=== PATIENT | male | born 1960 | race Caucasian/White ===

== ENCOUNTER 2020-01-15 20:40 | Inpatient (IN) ==
[2020-01-15] MEDS ORDERED: Isovue-370 500 ML BOTTLE IVP ONE (23:19)
[2020-01-15] MEDS ORDERED: Ondansetron ODT 4 MG TAB.RAPDIS SL PRN (23:37)
[2020-01-15] MEDS ORDERED: Nicotine 2 MG GUM BC PRN (23:37)
[2020-01-15] MEDS ORDERED: Naloxone 0.4 MG/ML INJ IVP PRN (23:37)
[2020-01-15] MEDS ORDERED: Albuterol 2.5 MG/3 ML NEBULIZER IH PRN (23:37)
[2020-01-15] MEDS ORDERED: *HR* LORazepam 2 MG/ML VIAL IVP PRN ×3 (23:37)
[2020-01-15] MEDS ORDERED: 0.9 % Sodium Chloride 1,000 ML IVC SCH (23:45)
[2020-01-15] MEDS ORDERED: Thiamine (B-1) 100 MG, Folic Acid 1 MG, MVI, adult with vitamin K 10 ML in 0.9 % Sodi... IVPB SCH (23:45)
[2020-01-16 00:20] LABS: Bilirubin,Urine Negative (Negative); Blood,Urine Trace (Negative); Clarity,Urine Clear (Clear); Color,Urine Yellow (Yellow); Glucose,Urine (UA) Normal (Normal); Ketones,Urine Negative (Negative); Leukocyte Esterase,Urine Negative (Negative); Nitrite,Urine Negative (Negative); Protein,Urine Negative (Neg-Trace); Specific Gravity,Urine 1.029 (1.010-1.025); Urobilinogen,Urine Normal (Normal)
[2020-01-16 00:22] LABS: Bacteria,Urine None Seen per hpf (None-Few); Hyaline Casts,Urine None Seen per lpf (None-Few); Squamous Epithelial Cell,Urine Moderate per lpf (None-Few); WBC,Urine 0-3 per hpf (0-3)
[2020-01-16 00:24] LABS: Basophils # 0.1 K/mcL (0.0-0.2); Basophils % 0.6 %; Eosinophils # 0.8 K/mcL (0.0-0.6); Eosinophils % 3.8 %; Hematocrit 37.7 % (37.5-50.1); Hemoglobin 12.1 g/dL (12.9-16.9); Immature Granulocytes % 2.2 % (0-4); Lymphocytes # 2.1 K/mcL (0.6-4.6); Lymphocytes % 10.3 %; Mean Corpuscular HGB Conc 32.1 g/dL (31.6-35.5); Mean Corpuscular Hemoglobin 28.3 pg (28.0-33.3); Mean Corpuscular Volume 88.1 fL (83.0-100.0); Mean Platelet Volume 9.6 fL (9.4-12.4); Monocytes # 1.9 K/mcL (0.0-1.3); Monocytes % 9.4 %; Neutrophils # 15.1 K/mcL (1.6-8.9); Platelet Count 553 K/mcL (140-400); Red Blood Count 4.28 M/mcL (4.19-5.50); Red Cell Distribution Width 13.9 % (11.5-14.5); Segmented Neutrophils % 73.7 %; White Blood Count 20.4 K/mcL (4.3-11.1)
[2020-01-16 00:32] LABS: Amphetamine Screen,Urine Positive ng/mL (Cutoff=1000); Barbiturate Screen,Urine Negative ng/mL (Cutoff=200); Benzodiazepines Screen,Urine Negative ng/mL (Cutoff=200); Cannabinoid Screen,Urine Negative ng/mL (Cutoff = 50); Cocaine Screen,Urine Negative ng/mL (Cutoff= 300); Opiate Screen,Urine Negative ng/mL (Cutoff=300); Phencyclidine Screen,Urine Negative ng/mL (Cutoff=25)
[2020-01-16 00:37] LABS: Magnesium 1.9 mg/dL (1.6-2.6); Phosphorous 3.2 mg/dL (2.7-4.5)
[2020-01-16 00:41] LABS: Alanine Aminotransferase 30 Units/L (7-52); Albumin 2.7 g/dL (3.5-5.7); Albumin/Globulin Ratio 0.8 (1.1-2.2); Alkaline Phosphatase 122 Units/L (34-104); Aspartate Amino Transferase 36 Units/L (13-39); BUN/Creatinine Ratio 12 (6-26); Bilirubin,Total 0.4 mg/dL (0.3-1.0); Blood Urea Nitrogen 8 mg/dL (6-20); Calcium 8.1 mg/dL (8.6-10.3); Carbon Dioxide 27 mEq/L (23-29); Chloride 92 mEq/L (98-107); Globulin 3.6 g/dL (2.4-3.5); Glucose 105 mg/dL (70-105); Osmolality,Calculated 261 (280-300); Potassium 3.7 mEq/L (3.5-5.1); Sodium 126 mEq/L (136-145); Total Protein 6.3 g/dL (6.4-8.9); eGFR For African Americans > 60 (> 60); eGFR For Non-African Americans > 60 (> 60)
[2020-01-16 00:44] LABS: Troponin I 0.78 ng/mL (< 0.04)
[2020-01-16] MEDS ORDERED: Ringers Solution, Lactated 1,000 ML IVC SCH (01:00)
[2020-01-16 02:28] LABS: Basophils # 0.1 K/mcL (0.0-0.2); Basophils % 0.4 %; Eosinophils # 0.7 K/mcL (0.0-0.6); Eosinophils % 3.4 %; Hematocrit 34.7 % (37.5-50.1); Hemoglobin 11.3 g/dL (12.9-16.9); Immature Granulocytes % 2.3 % (0-4); Lymphocytes # 1.6 K/mcL (0.6-4.6); Lymphocytes % 7.8 %; Mean Corpuscular HGB Conc 32.6 g/dL (31.6-35.5); Mean Corpuscular Hemoglobin 28.6 pg (28.0-33.3); Mean Corpuscular Volume 87.8 fL (83.0-100.0); Mean Platelet Volume 9.3 fL (9.4-12.4); Monocytes # 1.7 K/mcL (0.0-1.3); Monocytes % 8.5 %; Neutrophils # 15.8 K/mcL (1.6-8.9); Platelet Count 538 K/mcL (140-400); Red Blood Count 3.95 M/mcL (4.19-5.50); Red Cell Distribution Width 13.7 % (11.5-14.5); Segmented Neutrophils % 77.6 %; White Blood Count 20.4 K/mcL (4.3-11.1)
[2020-01-16 02:44] LABS: BUN/Creatinine Ratio 14 (6-26); Blood Urea Nitrogen 8 mg/dL (6-20); Carbon Dioxide 26 mEq/L (23-29); Chloride 93 mEq/L (98-107); Chol/HDL Ratio 5.1 (0-4.9); Glucose 105 mg/dL (70-105); Osmolality,Calculated 261 (280-300); Potassium 3.5 mEq/L (3.5-5.1); Sodium 126 mEq/L (136-145); eGFR For African Americans > 60 (> 60); eGFR For Non-African Americans > 60 (> 60)
[2020-01-16] MEDS ORDERED: Piperacillin/Tazobactam 3.375 GM in 0.9 % Sodium Chloride Mini Bag 100 ML IVPB SCH (04:46)
[2020-01-16] MEDS ORDERED: Cefepime HCl 2,000 MG in 0.9 % Sodium Chloride Mini Bag 100 ML IVPB SCH (06:00)
[2020-01-16 06:17] LABS: BUN/Creatinine Ratio 12 (6-26); Blood Urea Nitrogen 7 mg/dL (6-20); Carbon Dioxide 28 mEq/L (23-29); Chloride 94 mEq/L (98-107); Glucose 101 mg/dL (70-105); Osmolality,Calculated 264 (280-300); Potassium 3.6 mEq/L (3.5-5.1); Sodium 128 mEq/L (136-145); eGFR For African Americans > 60 (> 60); eGFR For Non-African Americans > 60 (> 60)
[2020-01-16] MEDS: Heparin 25,000 UNIT/250 ML D5W 25,000 UNIT/250 ML IV.SOLN IVC SCH (06:20)
[2020-01-16] MEDS: MetroNIDAZOLE 500 MG/100 ML 500 MG/100 ML BAG IVPB SCH ×2 (06:20→17:06)
[2020-01-16 07:58] LABS: Estimated Average Glucose 128 mg/dl
[2020-01-16] MEDS: Thiamine (B-1) 100 MG TABLET PO SCH (08:27)
[2020-01-16] MEDS: Vitamin B Complex/Vit C/Vit E 1 EACH TABLET PO SCH (08:27)
[2020-01-16] MEDS: Folic Acid 1 MG TABLET PO SCH (08:27)
[2020-01-16] MEDS ORDERED: *HR* Labetalol 20 MG/4 ML SYRINGE IVP ONE (08:46)
[2020-01-16 11:32] LABS: BUN/Creatinine Ratio 11 (6-26); Blood Urea Nitrogen 7 mg/dL (6-20); Carbon Dioxide 27 mEq/L (23-29); Chloride 96 mEq/L (98-107); Glucose 94 mg/dL (70-105); Osmolality,Calculated 264 (280-300); Potassium 3.6 mEq/L (3.5-5.1); Sodium 128 mEq/L (136-145); eGFR For African Americans > 60 (> 60); eGFR For Non-African Americans > 60 (> 60)
[2020-01-16] MEDS: *HR* Heparin 5,000 UNIT/ML VIAL IVP PRN ×2 (13:51→20:47)
[2020-01-16] MEDS: 0.9 % Sodium Chloride 1,000 ML IVC SCH (13:53)
[2020-01-16 14:54] LABS: BUN/Creatinine Ratio 15 (6-26); Blood Urea Nitrogen 9 mg/dL (6-20); Carbon Dioxide 29 mEq/L (23-29); Chloride 96 mEq/L (98-107); Glucose 87 mg/dL (70-105); Osmolality,Calculated 266 (280-300); Potassium 3.6 mEq/L (3.5-5.1); Sodium 129 mEq/L (136-145); eGFR For African Americans > 60 (> 60); eGFR For Non-African Americans > 60 (> 60)
[2020-01-16] MEDS: Cefepime HCl 2,000 MG in Water for inj. (sterile) 20 ML IVP SCH (16:30)
[2020-01-17] MEDS: 0.9 % Sodium Chloride 1,000 ML IVC SCH (00:05)
[2020-01-17] MEDS: Cefepime HCl 2,000 MG in Water for inj. (sterile) 20 ML IVP SCH ×3 (00:06→15:40)
[2020-01-17] MEDS: MetroNIDAZOLE 500 MG/100 ML 500 MG/100 ML BAG IVPB SCH ×3 (00:07→15:40)
[2020-01-17 03:12] LABS: Hematocrit 30.4 % (37.5-50.1); Mean Corpuscular HGB Conc 32.9 g/dL (31.6-35.5); Mean Corpuscular Hemoglobin 28.8 pg (28.0-33.3); Mean Corpuscular Volume 87.6 fL (83.0-100.0); Mean Platelet Volume 9.6 fL (9.4-12.4); Platelet Count 529 K/mcL (140-400); Red Blood Count 3.47 M/mcL (4.19-5.50); Red Cell Distribution Width 14.3 % (11.5-14.5); White Blood Count 20.3 K/mcL (4.3-11.1)
[2020-01-17 03:20] LABS: % Iron Saturation 26 % (20-55); Alanine Aminotransferase 22 Units/L (7-52); Albumin 2.3 g/dL (3.5-5.7); Albumin/Globulin Ratio 0.7 (1.1-2.2); Alkaline Phosphatase 100 Units/L (34-104); Aspartate Amino Transferase 27 Units/L (13-39); BUN/Creatinine Ratio 16 (6-26); Bilirubin,Total 0.4 mg/dL (0.3-1.0); Blood Urea Nitrogen 10 mg/dL (6-20); Calcium 7.7 mg/dL (8.6-10.3); Carbon Dioxide 24 mEq/L (23-29); Chloride 98 mEq/L (98-107); Globulin 3.2 g/dL (2.4-3.5); Glucose 101 mg/dL (70-105); Iron 40 mcg/dL (65-175); Osmolality,Calculated 267 (280-300); Potassium 3.6 mEq/L (3.5-5.1); Sodium 129 mEq/L (136-145); Total Protein 5.5 g/dL (6.4-8.9); Transferrin 109 mg/dL (203-362); eGFR For African Americans > 60 (> 60); eGFR For Non-African Americans > 60 (> 60)
[2020-01-17 03:24] LABS: Troponin I 0.35 ng/mL (< 0.04)
[2020-01-17] MEDS: *HR* Heparin 5,000 UNIT/ML VIAL IVP PRN ×2 (04:39→11:03)
[2020-01-17] MEDS: Vitamin B Complex/Vit C/Vit E 1 EACH TABLET PO SCH (07:57)
[2020-01-17] MEDS: Folic Acid 1 MG TABLET PO SCH (07:57)
[2020-01-17] MEDS: Thiamine (B-1) 100 MG TABLET PO SCH (07:57)
[2020-01-17] MEDS: Heparin 25,000 UNIT/250 ML D5W 25,000 UNIT/250 ML IV.SOLN IVC SCH (08:13)
[2020-01-17] MEDS ORDERED: Lactulose Oral Soln 20 GM/30 ML UDC PO ONE (11:08)
[2020-01-17] MEDS ORDERED: 0.9 % Sodium Chloride 1,000 ML IVC SCH (11:30)
[2020-01-17] MEDS: Iron Sucrose Complex 200 MG in 0.9 % Sodium Chloride 100 ML IVPB SCH (12:52)
[2020-01-17] MEDS: Menthol 9.1 MG LOZENGE PO PRN (20:54)
[2020-01-18] MEDS: MetroNIDAZOLE 500 MG/100 ML 500 MG/100 ML BAG IVPB SCH ×4 (00:25→23:28)
[2020-01-18] MEDS: Cefepime HCl 2,000 MG in Water for inj. (sterile) 20 ML IVP SCH ×4 (00:25→23:27)
[2020-01-18 04:43] LABS: Hematocrit 29.2 % (37.5-50.1); Hemoglobin 9.7 g/dL (12.9-16.9); Mean Corpuscular HGB Conc 33.2 g/dL (31.6-35.5); Mean Corpuscular Hemoglobin 28.8 pg (28.0-33.3); Mean Corpuscular Volume 86.6 fL (83.0-100.0); Mean Platelet Volume 9.5 fL (9.4-12.4); Platelet Count 492 K/mcL (140-400); Red Blood Count 3.37 M/mcL (4.19-5.50); Red Cell Distribution Width 14.3 % (11.5-14.5); White Blood Count 20.4 K/mcL (4.3-11.1)
[2020-01-18] MEDS: Heparin 25,000 UNIT/250 ML D5W 25,000 UNIT/250 ML IV.SOLN IVC SCH ×2 (04:43→20:44)
[2020-01-18 05:00] LABS: BUN/Creatinine Ratio 15 (6-26); Blood Urea Nitrogen 9 mg/dL (6-20); Calcium 7.6 mg/dL (8.6-10.3); Carbon Dioxide 26 mEq/L (23-29); Chloride 98 mEq/L (98-107); Glucose 113 mg/dL (70-105); Osmolality,Calculated 269 (280-300); Potassium 3.3 mEq/L (3.5-5.1); Sodium 130 mEq/L (136-145); eGFR For African Americans > 60 (> 60); eGFR For Non-African Americans > 60 (> 60)
[2020-01-18] MEDS: Iron Sucrose Complex 200 MG in 0.9 % Sodium Chloride 100 ML IVPB SCH (09:02)
[2020-01-18] MEDS ORDERED: 0.9 % Sodium Chloride 1,000 ML IVC SCH (12:30)
[2020-01-18] MEDS: Folic Acid 1 MG TABLET PO SCH (13:31)
[2020-01-18] MEDS: Vitamin B Complex/Vit C/Vit E 1 EACH TABLET PO SCH (13:31)
[2020-01-18] MEDS: Thiamine (B-1) 100 MG TABLET PO SCH (13:31)
[2020-01-19] MEDS: Menthol 9.1 MG LOZENGE PO PRN ×2 (00:18→06:14)
[2020-01-19 04:41] LABS: Hematocrit 29.3 % (37.5-50.1); Hemoglobin 9.7 g/dL (12.9-16.9); Mean Corpuscular HGB Conc 33.1 g/dL (31.6-35.5); Mean Corpuscular Volume 87.5 fL (83.0-100.0); Mean Platelet Volume 10.1 fL (9.4-12.4); Platelet Count 472 K/mcL (140-400); Red Blood Count 3.35 M/mcL (4.19-5.50); Red Cell Distribution Width 14.4 % (11.5-14.5)
[2020-01-19 05:01] LABS: BUN/Creatinine Ratio 10 (6-26); Blood Urea Nitrogen 7 mg/dL (6-20); Calcium 7.7 mg/dL (8.6-10.3); Carbon Dioxide 25 mEq/L (23-29); Chloride 99 mEq/L (98-107); Glucose 130 mg/dL (70-105); Osmolality,Calculated 270 (280-300); Potassium 3.5 mEq/L (3.5-5.1); Sodium 130 mEq/L (136-145); eGFR For African Americans > 60 (> 60); eGFR For Non-African Americans > 60 (> 60)
[2020-01-19] MEDS: Cefepime HCl 2,000 MG in Water for inj. (sterile) 20 ML IVP SCH ×3 (09:37→23:33)
[2020-01-19] MEDS: Iron Sucrose Complex 200 MG in 0.9 % Sodium Chloride 100 ML IVPB SCH (09:38)
[2020-01-19] MEDS: MetroNIDAZOLE 500 MG/100 ML 500 MG/100 ML BAG IVPB SCH ×3 (09:38→23:33)
[2020-01-19] MEDS: Thiamine (B-1) 100 MG TABLET PO SCH (09:39)
[2020-01-19] MEDS: Vitamin B Complex/Vit C/Vit E 1 EACH TABLET PO SCH (09:39)
[2020-01-19] MEDS: Folic Acid 1 MG TABLET PO SCH (09:39)
[2020-01-19] MEDS: Ipratropium/Albuterol Neb 3 ML IH SCH ×3 (10:38→22:08)
[2020-01-19 12:18] LABS: Red Blood Cell,CSF < 2000 RBC/mcL
[2020-01-19 12:27] LABS: Appearance,CSF Clear (Clear)
[2020-01-19 12:38] LABS: Glucose,CSF 67 mg/dL (40-70); Total Protein,CSF 38 mg/dL (15-45)
[2020-01-19] MEDS ORDERED: Aminoglycoside Consult 1 EACH MC ONE (19:41)
[2020-01-20 00:28] LABS: Bilirubin,Urine Negative (Negative); Blood,Urine Trace (Negative); Clarity,Urine Clear (Clear); Color,Urine Yellow (Yellow); Glucose,Urine (UA) Normal (Normal); Ketones,Urine Negative (Negative); Leukocyte Esterase,Urine Negative (Negative); Nitrite,Urine Negative (Negative); Protein,Urine Negative (Neg-Trace); Specific Gravity,Urine 1.009 (1.010-1.025); Urobilinogen,Urine Normal (Normal)
[2020-01-20 00:29] LABS: Sodium, Urine 48.4 mEq/L
[2020-01-20 00:30] LABS: Bacteria,Urine None Seen per hpf (None-Few); Hyaline Casts,Urine None Seen per lpf (None-Few); RBC,Urine 0-3 per hpf (0-3); Squamous Epithelial Cell,Urine Moderate per lpf (None-Few); WBC,Urine 0-3 per hpf (0-3)
[2020-01-20] MEDS: Ipratropium/Albuterol Neb 3 ML IH SCH ×3 (03:53→15:51)
[2020-01-20 08:49] LABS: Hematocrit 29.9 % (37.5-50.1); Hemoglobin 10.1 g/dL (12.9-16.9); Mean Corpuscular HGB Conc 33.8 g/dL (31.6-35.5); Mean Corpuscular Hemoglobin 29.5 pg (28.0-33.3); Mean Corpuscular Volume 87.4 fL (83.0-100.0); Mean Platelet Volume 9.8 fL (9.4-12.4); Platelet Count 419 K/mcL (140-400); Red Blood Count 3.42 M/mcL (4.19-5.50); Red Cell Distribution Width 14.6 % (11.5-14.5); White Blood Count 20.1 K/mcL (4.3-11.1)
[2020-01-20] MEDS: Cefepime HCl 2,000 MG in Water for inj. (sterile) 20 ML IVP SCH (09:05)
[2020-01-20] MEDS: Vitamin B Complex/Vit C/Vit E 1 EACH TABLET PO SCH (09:06)
[2020-01-20] MEDS: Folic Acid 1 MG TABLET PO SCH (09:06)
[2020-01-20] MEDS: Thiamine (B-1) 100 MG TABLET PO SCH (09:06)
[2020-01-20 09:08] LABS: BUN/Creatinine Ratio 9 (6-26); Blood Urea Nitrogen 6 mg/dL (6-20); Carbon Dioxide 29 mEq/L (23-29); Chloride 98 mEq/L (98-107); Glucose 155 mg/dL (70-105); Osmolality,Calculated 275 (280-300); Potassium 3.4 mEq/L (3.5-5.1); Sodium 132 mEq/L (136-145); eGFR For African Americans > 60 (> 60); eGFR For Non-African Americans > 60 (> 60)
[2020-01-20] MEDS: MetroNIDAZOLE 500 MG/100 ML 500 MG/100 ML BAG IVPB SCH (09:13)
[2020-01-20] MEDS: Iron Sucrose Complex 200 MG in 0.9 % Sodium Chloride 100 ML IVPB SCH (09:13)
[2020-01-20 16:57] VITALS: BP 124/70
[2020-01-21] MEDS ORDERED: Aspirin Enteric Coated 81 MG Tablet PO SCH (09:00)
== END 2020-01-20 19:42 | disposition home or self-care (01) | DRG 814 ==
LOC: 2NNU → SUATTDRO 22:25 → 2ANU 01-18 13:01
PROVIDERS: ADMIT Internal Medicine; ATTEND Internal Medicine

== ENCOUNTER 2020-09-27 05:32 | Inpatient (IN) ==
[2020-09-27] MEDS ORDERED: Perflutren Lipid Microsphere 1.3 ML in 0.9 % Sodium Chloride 8.7 ML IVP PRN (07:42)
[2020-09-27] MEDS ORDERED: Ringers Solution, Lactated 500 ML IVC ONE (08:18)
[2020-09-27 09:02] LABS: Alanine Aminotransferase 7 Units/L (7-52); Albumin 1.8 g/dL (3.5-5.7); Albumin/Globulin Ratio 0.6 (1.1-2.2); Alkaline Phosphatase 126 Units/L (34-104); Aspartate Amino Transferase 44 Units/L (13-39); BUN/Creatinine Ratio 19 (6-26); Bilirubin,Total 1.7 mg/dL (0.3-1.0); Blood Urea Nitrogen 69 mg/dL (8-23); Calcium 7.4 mg/dL (8.6-10.3); Carbon Dioxide 23 mEq/L (23-29); Chloride 103 mEq/L (98-107); Creatine Kinase 273 Units/L (30-223); Globulin 3.1 g/dL (2.4-3.5); Glucose 80 mg/dL (70-105); Osmolality,Calculated 301 (280-300); Potassium 3.2 mEq/L (3.5-5.1); Sodium 136 mEq/L (136-145); Total Protein 4.9 g/dL (6.4-8.9); eGFR For African Americans 21 (> 60); eGFR For Non-African Americans 17 (> 60)
[2020-09-27] MEDS ORDERED: Naloxone 0.4 MG/ML INJ IVP PRN (10:10)
[2020-09-27] MEDS ORDERED: Albuterol 2.5 MG/3 ML NEBULIZER IH PRN (10:26)
[2020-09-27] MEDS ORDERED: *HR* Heparin 5,000 UNIT/ML VIAL IVP PRN ×2 (10:40)
[2020-09-27] MEDS ORDERED: *HR* LORazepam 2 MG/ML VIAL IVP PRN ×2 (10:57)
[2020-09-27] MEDS ORDERED: Vancomycin 1 EACH in 0.9 % Sodium Chloride 250 ML IVPB SCH (11:00)
[2020-09-27 11:25] LABS: Mean Corpuscular Hemoglobin 29.4 pg (28.0-33.3); Red Cell Distribution Width 16.7 % (11.5-14.5)
[2020-09-27 11:26] LABS: Hematocrit 30.9 % (37.5-50.1); Mean Corpuscular HGB Conc 32.4 g/dL (31.6-35.5); Mean Corpuscular Volume 90.9 fL (83.0-100.0); Mean Platelet Volume 11.9 fL (9.4-12.4); Platelet Count 203 K/mcL (140-400)
[2020-09-27] MEDS ORDERED: Albumin 25% 25gram/100mL 25 GM/100 ML IV.SOLN IVPB ONE (11:26)
[2020-09-27 11:27] LABS: Ethanol < 10 mg/dL (Less than 10)
[2020-09-27 11:27] LABS: Heparin anti-factor XA UFH < 0.04 IU/mL (0.30-0.70); INR 1.5; Prothrombin Time 17.5 Seconds (9.4-12.1)
[2020-09-27] MEDS: Norepinephrine 4 MG/254 ML IV.SOLN IVC SCH ×3 (11:30→23:45)
[2020-09-27 11:32] LABS: White Blood Count 37.8 K/mcL (4.3-11.1)
[2020-09-27 11:47] LABS: Protein/Creatinine Ratio,Urine 0.67 mg/mg (0.00-0.20); Sodium, Urine 12.1 mEq/L
[2020-09-27] MEDS ORDERED: *HR* FentaNYL (PF) 100 MCG/2 ML VIAL IVP ONE (11:57)
[2020-09-27] MEDS ORDERED: *HR* Midazolam HCl 5 MG/5 ML VIAL IVP ONE ×2 (11:57→12:03)
[2020-09-27] MEDS ORDERED: D5% in Water 1,000 ML IVC PRN (12:12)
[2020-09-27] MEDS ORDERED: Dextrose Gel 15 GM/37.5 ML TUBE PO PRN ×2 (12:12)
[2020-09-27 13:42] LABS: Basophils,Pleural Fluid 0 %; Eosinophils,Pleural Fluid 0 %; Monocytes,Pleural Fluid 0 %
[2020-09-27 13:43] LABS: Appearance of Pleural Fl Hazy (Clear)
[2020-09-27] MEDS: Heparin 25,000UNIT/250ML 1/2NS 25,000 UNIT/250 ML IV.SOLN IVC SCH (14:30)
[2020-09-27 15:46] LABS: Lactate Dehydrogenase 212 Units/L (140-271); Total Protein 5.3 g/dL (6.4-8.9)
[2020-09-27] MEDS ORDERED: Piperacillin/Tazobactam 3.375 GM in 0.9 % Sodium Chloride Mini Bag 100 ML IVPB SCH (16:00)
[2020-09-27] MEDS ORDERED: Cefepime HCl 2,000 MG in Water for inj. (sterile) 20 ML IVP SCH (16:00)
[2020-09-27] MEDS: Ipratropium/Albuterol Neb 3 ML IH SCH ×2 (16:09→22:11)
[2020-09-27 16:27] LABS: Nucleated Red Blood Cells 0.1 /100 WBC (0)
[2020-09-27 16:35] LABS: Appearance of Body Fluid Cloudy (Clear); Volume of Body Fluid 16 mL
[2020-09-27 16:45] LABS: Lymphocytes # 2.3 K/mcL (0.6-4.6)
[2020-09-27 16:46] LABS: Anisocytosis 1+ (Not Present); Platelet Estimate Normal (Normal)
[2020-09-27 16:47] LABS: Large Platelets Present (Not Present)
[2020-09-27] MEDS: MethylPREDNISolone 40 MG/ML VIAL IVP SCH ×2 (16:59→23:47)
[2020-09-27] MEDS: Insulin LISPRO 300 UNITS/3 ML VIAL SUBQ SCH (18:24)
[2020-09-27] MEDS: Budesonide/Formoterol 160/4.5 1 PUFF INH IH SCH (22:11)
[2020-09-27 23:56] LABS: Bilirubin,Urine Small (Negative); Blood,Urine Moderate (Negative); Clarity,Urine Clear (Clear); Color,Urine Yellow (Yellow); Glucose,Urine (UA) 100 mg/dL (Normal); Ketones,Urine Negative (Negative); Leukocyte Esterase,Urine Negative (Negative); Nitrite,Urine Negative (Negative); Protein,Urine 30 mg/dL (Neg-Trace); Specific Gravity,Urine >= 1.030 (1.010-1.025); Urobilinogen,Urine Normal (Normal)
[2020-09-28 00:08] LABS: Amphetamine Screen,Urine Positive ng/mL (Cutoff=1000); Barbiturate Screen,Urine Negative ng/mL (Cutoff=200); Benzodiazepines Screen,Urine Positive ng/mL (Cutoff=200); Cannabinoid Screen,Urine Negative ng/mL (Cutoff = 50); Cocaine Screen,Urine Negative ng/mL (Cutoff= 300); Opiate Screen,Urine Negative ng/mL (Cutoff=300); Phencyclidine Screen,Urine Negative ng/mL (Cutoff=25)
[2020-09-28 00:19] LABS: Granular Casts,Urine Few per lpf (None Seen); Mucus,Urine Few per lpf (None-Few); Squamous Epithelial Cell,Urine Few per hpf (None-Few)
[2020-09-28 00:20] LABS: RBC,Urine 0-3 per hpf (0-3); WBC,Urine 0-3 per hpf (0-3)
[2020-09-28] MEDS: *HR* LORazepam 2 MG/ML VIAL IVP PRN (01:14)
[2020-09-28 02:19] LABS: VBG Ionized Calcium 1.04 mmol/L (1.15-1.35)
[2020-09-28 02:20] LABS: Hematocrit 27.4 % (37.5-50.1); Hemoglobin 8.9 g/dL (12.9-16.9); Mean Corpuscular HGB Conc 32.5 g/dL (31.6-35.5); Mean Corpuscular Hemoglobin 30.1 pg (28.0-33.3); Mean Corpuscular Volume 92.6 fL (83.0-100.0); Platelet Count 183 K/mcL (140-400); Red Blood Count 2.96 M/mcL (4.19-5.50)
[2020-09-28 02:21] LABS: Heparin anti-factor XA UFH 0.72 IU/mL (0.30-0.70)
[2020-09-28 02:42] LABS: Activated Partial Thrombo Time > 360.0 Seconds (26.0-36.0); White Blood Count 39.1 K/mcL (4.3-11.1)
[2020-09-28 03:05] LABS: Albumin/Globulin Ratio 0.7 (1.1-2.2); Anisocytosis 1+ (Not Present); Calcium 7.6 mg/dL (8.6-10.3); Lymphocytes # 0.8 K/mcL (0.6-4.6); Neutrophils # 37.5 K/mcL (1.6-8.9); Platelet Estimate Normal (Normal); Polychromasia 1+ (Not Present); Potassium 3.7 mEq/L (3.5-5.1)
[2020-09-28] MEDS: Norepinephrine 4 MG/254 ML IV.SOLN IVC SCH ×4 (04:05→20:27)
[2020-09-28] MEDS: Ipratropium/Albuterol Neb 3 ML IH SCH ×4 (04:19→21:33)
[2020-09-28 04:55] LABS: Heparin anti-factor XA UFH 0.15 IU/mL (0.30-0.70)
[2020-09-28 04:57] LABS: Activated Partial Thrombo Time 47.4 Seconds (26.0-36.0)
[2020-09-28 04:58] LABS: Magnesium 1.9 mg/dL (1.6-2.6); Phosphorous 5.6 mg/dL (2.7-4.5)
[2020-09-28] MEDS: Insulin LISPRO 300 UNITS/3 ML VIAL SUBQ SCH ×5 (05:33→23:46)
[2020-09-28] MEDS: MethylPREDNISolone 40 MG/ML VIAL IVP SCH ×3 (07:52→23:13)
[2020-09-28] MEDS: Folic Acid 1 MG in 0.9 % Sodium Chloride 50 ML IVPB SCH (07:53)
[2020-09-28] MEDS: Thiamine (B-1) 200 MG in 0.9 % Sodium Chloride 50 ML IVPB SCH (07:54)
[2020-09-28] MEDS: Calcium Gluconate 1gm/50mL 1 GM/50 ML BAG IVPB SCH ×2 (07:55→08:55)
[2020-09-28] MEDS: Budesonide/Formoterol 160/4.5 1 PUFF INH IH SCH ×2 (09:14→21:33)
[2020-09-28] MEDS ORDERED: Artificial Tears SOLN 15 ML BOTTLE BOTH EYES PRN (11:01)
[2020-09-28] MEDS ORDERED: *HR* Midazolam HCl 2 MG/2 ML VIAL IVP ONE (11:03)
[2020-09-28] MEDS ORDERED: *HR* Rocuronium Bromide 50 MG/5 ML VIAL IVP ONE (11:03)
[2020-09-28] MEDS ORDERED: *HR* Etomidate 20 MG/10 ML AMPUL IVP ONE (11:03)
[2020-09-28 11:32] LABS: ABG Base Excess -6 mEq/L (-2 to 3); ABG HCO3 21 mEq/L (21-27); ABG Oxygen Saturation 94 % (95-98); ABG PCO2 48 mmHg (35-45); ABG PH 7.26 pH Units (7.32-7.45); ABG PO2 83 mmHg (85-104); ABG TCO2 23 mEq/L (20-26); Blood Gas Modality ASSIST CONTROL; Blood Gas VT 450 cc
[2020-09-28] MEDS: Artificial Tears SOLN 15 ML BOTTLE BOTH EYES SCH ×4 (12:13→23:19)
[2020-09-28] MEDS: Cefepime HCl 1,000 MG in Water for inj. (sterile) 10 ML IVP SCH ×2 (12:14→23:14)
[2020-09-28] MEDS: Dexmedetomidine HCl 400 MCG/100 ML MLS IVC SCH (12:15)
[2020-09-28] MEDS: Ringers Solution, Lactated 1,000 ML IVC SCH ×2 (12:15→20:29)
[2020-09-28] MEDS: FentaNYL (PF) 1,000 MCG/100 ML IV.SOLN IVC SCH ×2 (12:16→23:16)
[2020-09-28 14:26] LABS: Uric Acid 11.7 mg/dL (2.3-7.6)
[2020-09-28 15:59] LABS: Troponin I 0.25 ng/mL (< 0.04)
[2020-09-28] MEDS ORDERED: Vancomycin 500 MG in 0.9 % Sodium Chloride Mini Bag 100 ML IVPB ONE (16:00)
[2020-09-28] MEDS: Aspirin Enteric Coated 81 MG Tablet PO SCH (18:26)
[2020-09-28] MEDS: Chlorhexidine Rinse 15 ML MOUTHWASH MM SCH (20:28)
[2020-09-28] MEDS: Heparin 25,000UNIT/250ML 1/2NS 25,000 UNIT/250 ML IV.SOLN IVC SCH (23:15)
[2020-09-29] MEDS: Norepinephrine 4 MG/254 ML IV.SOLN IVC SCH ×3 (02:14→21:17)
[2020-09-29] MEDS: Ipratropium/Albuterol Neb 3 ML IH SCH ×4 (03:30→21:05)
[2020-09-29 04:10] LABS: Hematocrit 28.8 % (37.5-50.1); Hemoglobin 9.4 g/dL (12.9-16.9); Mean Corpuscular HGB Conc 32.6 g/dL (31.6-35.5); Mean Corpuscular Hemoglobin 29.4 pg (28.0-33.3); Mean Platelet Volume 12.3 fL (9.4-12.4); Platelet Count 161 K/mcL (140-400); Red Cell Distribution Width 16.9 % (11.5-14.5)
[2020-09-29 04:14] LABS: Albumin 2.1 g/dL (3.5-5.7); Albumin/Globulin Ratio 0.6 (1.1-2.2); Bilirubin,Total 1.4 mg/dL (0.3-1.0); Calcium 7.3 mg/dL (8.6-10.3); Globulin 3.4 g/dL (2.4-3.5); Potassium 4.1 mEq/L (3.5-5.1); Total Protein 5.5 g/dL (6.4-8.9)
[2020-09-29 04:31] LABS: White Blood Count 40.3 K/mcL (4.3-11.1)
[2020-09-29 05:19] LABS: ABG Base Excess -6 mEq/L (-2 to 3); ABG HCO3 20 mEq/L (21-27); ABG Oxygen Saturation 93 % (95-98); ABG PCO2 40 mmHg (35-45); ABG PH 7.31 pH Units (7.32-7.45); ABG PO2 72 mmHg (85-104); ABG TCO2 21 mEq/L (20-26); Blood Gas VT 450 cc
[2020-09-29 05:38] LABS: Lymphocytes # 1.6 K/mcL (0.6-4.6); Neutrophils # 37.1 K/mcL (1.6-8.9); Platelet Estimate Normal (Normal)
[2020-09-29] MEDS: Artificial Tears SOLN 15 ML BOTTLE BOTH EYES SCH ×5 (05:57→21:10)
[2020-09-29] MEDS: Insulin LISPRO 300 UNITS/3 ML VIAL SUBQ SCH ×3 (06:14→18:10)
[2020-09-29] MEDS: Folic Acid 1 MG in 0.9 % Sodium Chloride 50 ML IVPB SCH (07:41)
[2020-09-29] MEDS: Aspirin Enteric Coated 81 MG Tablet PO SCH (07:41)
[2020-09-29] MEDS: Chlorhexidine Rinse 15 ML MOUTHWASH MM SCH ×2 (07:41→21:10)
[2020-09-29] MEDS: MethylPREDNISolone 40 MG/ML VIAL IVP SCH (07:41)
[2020-09-29] MEDS: Thiamine (B-1) 200 MG in 0.9 % Sodium Chloride 50 ML IVPB SCH (07:42)
[2020-09-29] MEDS: Budesonide/Formoterol 160/4.5 1 PUFF INH IH SCH ×2 (09:29→21:05)
[2020-09-29] MEDS: Ringers Solution, Lactated 1,000 ML IVC SCH (12:51)
[2020-09-29] MEDS: Pantoprazole 40 MG VIAL IVP SCH (12:52)
[2020-09-29] MEDS: Cefepime HCl 1,000 MG in Water for inj. (sterile) 10 ML IVP SCH (12:52)
[2020-09-29] MEDS: MetroNIDAZOLE 500 MG/100 ML 500 MG/100 ML BAG IVPB SCH ×2 (15:38→18:09)
[2020-09-29] MEDS: Vancomycin Oral Soln 125 MG/2.5 ML UDC PO SCH ×3 (15:39→21:10)
[2020-09-29] MEDS ORDERED: MethylPREDNISolone 40 MG/ML VIAL IVP SCH (18:00)
[2020-09-30] MEDS: Cefepime HCl 1,000 MG in Water for inj. (sterile) 10 ML IVP SCH ×2 (00:36→16:05)
[2020-09-30] MEDS: MetroNIDAZOLE 500 MG/100 ML 500 MG/100 ML BAG IVPB SCH ×4 (00:37→23:54)
[2020-09-30] MEDS: Ringers Solution, Lactated 1,000 ML IVC SCH (00:38)
[2020-09-30] MEDS: Ipratropium/Albuterol Neb 3 ML IH SCH ×4 (03:26→21:55)
[2020-09-30 03:57] LABS: Mean Corpuscular HGB Conc 32.5 g/dL (31.6-35.5); Nucleated Red Blood Cells 0.1 /100 WBC (0)
[2020-09-30 03:58] LABS: Hematocrit 28.9 % (37.5-50.1); Hemoglobin 9.4 g/dL (12.9-16.9); Mean Corpuscular Hemoglobin 29.2 pg (28.0-33.3); Mean Corpuscular Volume 89.8 fL (83.0-100.0); Mean Platelet Volume 12.4 fL (9.4-12.4); Monocytes # 0.8 K/mcL (0.0-1.3); Platelet Count 120 K/mcL (140-400); Red Blood Count 3.22 M/mcL (4.19-5.50); Red Cell Distribution Width 17.2 % (11.5-14.5)
[2020-09-30 04:08] LABS: White Blood Count 38.8 K/mcL (4.3-11.1)
[2020-09-30 04:14] LABS: Calcium 6.8 mg/dL (8.6-10.3); Magnesium 1.9 mg/dL (1.6-2.6)
[2020-09-30 04:21] LABS: Troponin I 0.18 ng/mL (< 0.04)
[2020-09-30 04:23] LABS: Anisocytosis 1+ (Not Present); Platelet Estimate Slight Decrease (Normal)
[2020-09-30 05:00] LABS: ABG Base Excess -6 mEq/L (-2 to 3); ABG HCO3 20 mEq/L (21-27); ABG Oxygen Saturation 94 % (95-98); ABG PCO2 39 mmHg (35-45); ABG PH 7.31 pH Units (7.32-7.45); ABG PO2 76 mmHg (85-104); ABG TCO2 21 mEq/L (20-26); Blood Gas Modality ASSIST CONTROL; Blood Gas VT 450 cc
[2020-09-30 05:29] LABS: Albumin 1.9 g/dL (3.5-5.7); Albumin/Globulin Ratio 0.6 (1.1-2.2); Bilirubin,Total 1.1 mg/dL (0.3-1.0); Calcium 6.8 mg/dL (8.6-10.3); Globulin 3.2 g/dL (2.4-3.5); Potassium 4.1 mEq/L (3.5-5.1); Total Protein 5.1 g/dL (6.4-8.9)
[2020-09-30] MEDS: Artificial Tears SOLN 15 ML BOTTLE BOTH EYES SCH ×7 (07:28→23:52)
[2020-09-30] MEDS: Heparin 25,000UNIT/250ML 1/2NS 25,000 UNIT/250 ML IV.SOLN IVC SCH (07:28)
[2020-09-30] MEDS: Dexmedetomidine HCl 400 MCG/100 ML MLS IVC SCH ×2 (07:28→15:56)
[2020-09-30] MEDS: Insulin LISPRO 300 UNITS/3 ML VIAL SUBQ SCH ×5 (07:28→23:52)
[2020-09-30] MEDS: Chlorhexidine Rinse 15 ML MOUTHWASH MM SCH ×2 (07:45→20:15)
[2020-09-30] MEDS: MethylPREDNISolone 40 MG/ML VIAL IVP SCH (07:45)
[2020-09-30] MEDS: Thiamine (B-1) 200 MG in 0.9 % Sodium Chloride 50 ML IVPB SCH (07:46)
[2020-09-30] MEDS: Folic Acid 1 MG in 0.9 % Sodium Chloride 50 ML IVPB SCH (07:46)
[2020-09-30] MEDS: Vancomycin Oral Soln 125 MG/2.5 ML UDC PO SCH ×4 (07:47→20:15)
[2020-09-30] MEDS: Aspirin Enteric Coated 81 MG Tablet PO SCH (07:47)
[2020-09-30] MEDS: FentaNYL (PF) 1,000 MCG/100 ML IV.SOLN IVC SCH (09:15)
[2020-09-30] MEDS: Budesonide/Formoterol 160/4.5 1 PUFF INH IH SCH ×2 (09:43→21:55)
[2020-09-30] MEDS: Norepinephrine 4 MG/254 ML IV.SOLN IVC SCH (10:10)
[2020-09-30] MEDS: Pantoprazole 40 MG VIAL IVP SCH (11:09)
[2020-09-30] MEDS: Ringers Solution, Lactated 2,000 ML IVC SCH (11:09)
[2020-09-30] MEDS: *HR* Heparin 5,000 UNIT/ML VIAL SQ SCH (18:12)
[2020-10-01] MEDS: *HR* LORazepam 2 MG/ML VIAL IVP PRN ×2 (00:09→04:28)
[2020-10-01] MEDS: Norepinephrine 4 MG/254 ML IV.SOLN IVC SCH ×2 (00:36→12:54)
[2020-10-01] MEDS: Ipratropium/Albuterol Neb 3 ML IH SCH ×4 (03:42→23:09)
[2020-10-01] MEDS: Artificial Tears SOLN 15 ML BOTTLE BOTH EYES SCH ×6 (03:48→23:32)
[2020-10-01 03:53] LABS: ABG Base Excess -6 mEq/L (-2 to 3); ABG HCO3 20 mEq/L (21-27); ABG Oxygen Saturation 94 % (95-98); ABG PCO2 41 mmHg (35-45); ABG PH 7.29 pH Units (7.32-7.45); ABG PO2 77 mmHg (85-104); ABG TCO2 21 mEq/L (20-26); Blood Gas Modality ASSIST CONTROL; Blood Gas VT 450 cc
[2020-10-01 04:05] LABS: Basophils % 0.1 %; Hematocrit 28.9 % (37.5-50.1); Hemoglobin 9.2 g/dL (12.9-16.9); Immature Granulocytes % 5.2 % (0-4); Lymphocytes # 1.1 K/mcL (0.6-4.6); Lymphocytes % 3.1 %; Mean Corpuscular HGB Conc 31.8 g/dL (31.6-35.5); Mean Corpuscular Hemoglobin 28.7 pg (28.0-33.3); Mean Platelet Volume 12.9 fL (9.4-12.4); Monocytes # 0.7 K/mcL (0.0-1.3); Neutrophils # 32.4 K/mcL (1.6-8.9); Nucleated Red Blood Cells 0.2 /100 WBC (0); Red Blood Count 3.21 M/mcL (4.19-5.50); Red Cell Distribution Width 17.1 % (11.5-14.5); Segmented Neutrophils % 89.6 %
[2020-10-01 04:10] LABS: Platelet Count 95 K/mcL (140-400); White Blood Count 36.1 K/mcL (4.3-11.1)
[2020-10-01 04:24] LABS: Calcium 6.7 mg/dL (8.6-10.3); Magnesium 1.8 mg/dL (1.6-2.6); Potassium 4.3 mEq/L (3.5-5.1)
[2020-10-01] MEDS: *HR* Heparin 5,000 UNIT/ML VIAL SQ SCH ×2 (06:19→17:31)
[2020-10-01] MEDS: Insulin LISPRO 300 UNITS/3 ML VIAL SUBQ SCH ×5 (06:19→23:32)
[2020-10-01] MEDS: Vancomycin Oral Soln 125 MG/2.5 ML UDC PO SCH ×4 (07:44→19:53)
[2020-10-01] MEDS: Aspirin Enteric Coated 81 MG Tablet PO SCH (07:44)
[2020-10-01] MEDS: MetroNIDAZOLE 500 MG/100 ML 500 MG/100 ML BAG IVPB SCH ×3 (07:44→23:32)
[2020-10-01] MEDS: MethylPREDNISolone 40 MG/ML VIAL IVP SCH (07:44)
[2020-10-01] MEDS: Chlorhexidine Rinse 15 ML MOUTHWASH MM SCH ×2 (07:44→19:53)
[2020-10-01] MEDS: Ringers Solution, Lactated 2,000 ML IVC SCH (07:45)
[2020-10-01] MEDS ORDERED: 0.9 % Sodium Chloride 500 ML ONE ×2 (08:48→11:09)
[2020-10-01] MEDS ORDERED: *HR* Alteplase (Cathflo) 2 MG VIAL IVP PRN (09:05)
[2020-10-01] MEDS ORDERED: 0.9 % Sodium Chloride 1,000 ML PRIME ONE ×2 (09:05)
[2020-10-01] MEDS ORDERED: *HR* Heparin 5,000 UNIT/ML VIAL CRRT PRN (09:05)
[2020-10-01] MEDS ORDERED: 0.9 % Sodium Chloride 1,000 ML PRIME SCH (09:15)
[2020-10-01] MEDS: Budesonide/Formoterol 160/4.5 1 PUFF INH IH SCH ×2 (09:16→23:09)
[2020-10-01] MEDS ORDERED: *HR* Heparin 5,000 UNIT/ML VIAL ONE (09:22)
[2020-10-01] MEDS: FentaNYL (PF) 1,000 MCG/100 ML IV.SOLN IVC SCH (09:53)
[2020-10-01] MEDS: Docusate Oral Soln 100 MG/10 ML UDC GTUBE SCH ×2 (10:01→19:53)
[2020-10-01] MEDS: Dexmedetomidine HCl 400 MCG/100 ML MLS IVC SCH (10:51)
[2020-10-01] MEDS: PrismaSATE BGK 4/2.5 5,000 ML CRRT SCH ×6 (11:00→22:00)
[2020-10-01] MEDS: Pantoprazole 40 MG VIAL IVP SCH (11:49)
[2020-10-01] MEDS: Cefepime HCl 1,000 MG in Water for inj. (sterile) 10 ML IVP SCH (15:09)
[2020-10-01] MEDS: Cefepime HCl 2,000 MG in Water for inj. (sterile) 20 ML IVP SCH (17:33)
[2020-10-02] MEDS: FentaNYL (PF) 1,000 MCG/100 ML IV.SOLN IVC SCH ×2 (03:30→22:08)
[2020-10-02] MEDS: PrismaSATE BGK 4/2.5 5,000 ML CRRT SCH ×12 (03:45→22:10)
[2020-10-02] MEDS: Artificial Tears SOLN 15 ML BOTTLE BOTH EYES SCH ×5 (04:10→19:58)
[2020-10-02] MEDS: Insulin LISPRO 300 UNITS/3 ML VIAL SUBQ SCH ×5 (04:10→19:58)
[2020-10-02] MEDS: Ipratropium/Albuterol Neb 3 ML IH SCH ×4 (04:16→21:50)
[2020-10-02 04:23] LABS: Immature Granulocytes % 4.2 % (0-4); Mean Corpuscular Volume 89.8 fL (83.0-100.0); Nucleated Red Blood Cells 0.1 /100 WBC (0); Segmented Neutrophils % 89.5 %
[2020-10-02 04:25] LABS: Basophils # 0.1 K/mcL (0.0-0.2); Basophils % 0.4 %; Hematocrit 28.1 % (37.5-50.1); Hemoglobin 9.1 g/dL (12.9-16.9); Immature Platelets 9.4 % (1.1-6.1); Lymphocytes # 1.3 K/mcL (0.6-4.6); Lymphocytes % 3.9 %; Mean Corpuscular HGB Conc 32.4 g/dL (31.6-35.5); Mean Corpuscular Hemoglobin 29.1 pg (28.0-33.3); Mean Platelet Volume 12.4 fL (9.4-12.4); Monocytes # 0.7 K/mcL (0.0-1.3); Neutrophils # 28.9 K/mcL (1.6-8.9); Red Blood Count 3.13 M/mcL (4.19-5.50); Red Cell Distribution Width 17.2 % (11.5-14.5)
[2020-10-02 04:29] LABS: Platelet Count 75 K/mcL (140-400)
[2020-10-02 04:31] LABS: White Blood Count 32.3 K/mcL (4.3-11.1)
[2020-10-02 04:42] LABS: Calcium 7.1 mg/dL (8.6-10.3); Potassium 4.3 mEq/L (3.5-5.1)
[2020-10-02 04:53] LABS: ABG Base Excess -2 mEq/L (-2 to 3); ABG HCO3 25 mEq/L (21-27); ABG Oxygen Saturation 94 % (95-98); ABG PCO2 46 mmHg (35-45); ABG PH 7.33 pH Units (7.32-7.45); ABG PO2 74 mmHg (85-104); ABG TCO2 26 mEq/L (20-26); Blood Gas VT 450 cc
[2020-10-02] MEDS: Cefepime HCl 2,000 MG in Water for inj. (sterile) 20 ML IVP SCH ×2 (05:52→17:06)
[2020-10-02] MEDS: *HR* Heparin 5,000 UNIT/ML VIAL SQ SCH ×2 (05:54→17:05)
[2020-10-02 06:53] LABS: Phosphorous 3.9 mg/dL (2.7-4.5)
[2020-10-02] MEDS: MetroNIDAZOLE 500 MG/100 ML 500 MG/100 ML BAG IVPB SCH ×2 (07:36→15:06)
[2020-10-02] MEDS: Docusate Oral Soln 100 MG/10 ML UDC GTUBE SCH ×2 (07:40→20:00)
[2020-10-02] MEDS: Chlorhexidine Rinse 15 ML MOUTHWASH MM SCH ×2 (07:40→19:58)
[2020-10-02] MEDS: Aspirin Enteric Coated 81 MG Tablet PO SCH (07:40)
[2020-10-02] MEDS: Dexmedetomidine HCl 400 MCG/100 ML MLS IVC SCH (07:42)
[2020-10-02] MEDS: Vancomycin Oral Soln 125 MG/2.5 ML UDC PO SCH ×4 (07:42→19:58)
[2020-10-02] MEDS ORDERED: MethylPREDNISolone 40 MG/ML VIAL IVP SCH (09:00)
[2020-10-02] MEDS: Budesonide/Formoterol 160/4.5 1 PUFF INH IH SCH ×2 (09:48→21:50)
[2020-10-02] MEDS: Pantoprazole 40 MG VIAL IVP SCH (11:06)
[2020-10-02] MEDS: Albumin 25% 25gram/100mL 25 GM/100 ML IV.SOLN IVPB SCH ×4 (11:13→12:03)
[2020-10-02] MEDS ORDERED: ALBUMIN IVPB ONE (11:15)
[2020-10-03] MEDS: Insulin LISPRO 300 UNITS/3 ML VIAL SUBQ SCH ×7 (00:34→23:32)
[2020-10-03] MEDS: Artificial Tears SOLN 15 ML BOTTLE BOTH EYES SCH ×7 (00:34→23:31)
[2020-10-03] MEDS: MetroNIDAZOLE 500 MG/100 ML 500 MG/100 ML BAG IVPB SCH ×3 (00:36→15:02)
[2020-10-03 02:05] LABS: Basophils % 0.3 %; Immature Granulocytes % 4.4 % (0-4); Nucleated Red Blood Cells 0.1 /100 WBC (0)
[2020-10-03 02:07] LABS: Basophils # 0.1 K/mcL (0.0-0.2); Hematocrit 23.7 % (37.5-50.1); Hemoglobin 7.8 g/dL (12.9-16.9); Lymphocytes # 1.7 K/mcL (0.6-4.6); Lymphocytes % 7.4 %; Mean Corpuscular HGB Conc 32.9 g/dL (31.6-35.5); Mean Corpuscular Hemoglobin 29.5 pg (28.0-33.3); Mean Corpuscular Volume 89.8 fL (83.0-100.0); Mean Platelet Volume 12.5 fL (9.4-12.4); Monocytes # 0.7 K/mcL (0.0-1.3); Monocytes % 3.1 %; Red Blood Count 2.64 M/mcL (4.19-5.50); Red Cell Distribution Width 16.8 % (11.5-14.5); Segmented Neutrophils % 84.8 %; White Blood Count 22.9 K/mcL (4.3-11.1)
[2020-10-03 02:13] LABS: Neutrophils # 19.4 K/mcL (1.6-8.9); Platelet Count 59 K/mcL (140-400)
[2020-10-03 02:28] LABS: BUN/Creatinine Ratio 25 (6-26); Blood Urea Nitrogen 31 mg/dL (8-23); Calcium 7.7 mg/dL (8.6-10.3); Carbon Dioxide 26 mEq/L (23-29); Chloride 107 mEq/L (98-107); Glucose 125 mg/dL (70-105); Magnesium 2.2 mg/dL (1.6-2.6); Osmolality,Calculated 292 (280-300); Phosphorous 2.3 mg/dL (2.7-4.5); Potassium 4.4 mEq/L (3.5-5.1); Sodium 137 mEq/L (136-145); eGFR For African Americans > 60 (> 60); eGFR For Non-African Americans 58 (> 60)
[2020-10-03] MEDS: PrismaSATE BGK 4/2.5 5,000 ML CRRT SCH ×12 (03:05→21:06)
[2020-10-03] MEDS: Ipratropium/Albuterol Neb 3 ML IH SCH ×4 (04:11→22:18)
[2020-10-03 04:21] LABS: ABG Base Excess 2 mEq/L (-2 to 3); ABG HCO3 29 mEq/L (21-27); ABG Oxygen Saturation 85 % (95-98); ABG PCO2 55 mmHg (35-45); ABG PH 7.33 pH Units (7.32-7.45); ABG PO2 55 mmHg (85-104); ABG TCO2 31 mEq/L (20-26); Blood Gas Modality VC; Blood Gas VT 450 cc
[2020-10-03] MEDS: Cefepime HCl 2,000 MG in Water for inj. (sterile) 20 ML IVP SCH ×2 (05:11→17:01)
[2020-10-03] MEDS: FentaNYL (PF) 1,000 MCG/100 ML IV.SOLN IVC SCH ×3 (06:09→21:20)
[2020-10-03] MEDS: Chlorhexidine Rinse 15 ML MOUTHWASH MM SCH ×2 (07:18→19:40)
[2020-10-03] MEDS: Docusate Oral Soln 100 MG/10 ML UDC GTUBE SCH ×2 (07:19→19:40)
[2020-10-03] MEDS: Dexmedetomidine HCl 400 MCG/100 ML MLS IVC SCH (07:20)
[2020-10-03 07:29] LABS: Basophils % 0.2 %; Eosinophils % 0.1 %; Hemoglobin 7.6 g/dL (12.9-16.9)
[2020-10-03 07:31] LABS: Hematocrit 23.9 % (37.5-50.1); Immature Granulocytes % 4.5 % (0-4); Immature Platelets 14.5 % (1.1-6.1); Lymphocytes % 9.2 %; Mean Corpuscular HGB Conc 31.8 g/dL (31.6-35.5); Mean Corpuscular Hemoglobin 28.6 pg (28.0-33.3); Mean Corpuscular Volume 89.8 fL (83.0-100.0); Mean Platelet Volume 12.1 fL (9.4-12.4); Monocytes # 0.7 K/mcL (0.0-1.3); Monocytes % 3.3 %; Neutrophils # 17.7 K/mcL (1.6-8.9); Nucleated Red Blood Cells 0.1 /100 WBC (0); Red Blood Count 2.66 M/mcL (4.19-5.50); Red Cell Distribution Width 16.9 % (11.5-14.5); Segmented Neutrophils % 82.7 %; White Blood Count 21.4 K/mcL (4.3-11.1)
[2020-10-03 07:43] LABS: Platelet Count 55 K/mcL (140-400)
[2020-10-03] MEDS: Pantoprazole 40 MG VIAL IVP SCH ×2 (08:02→19:40)
[2020-10-03] MEDS: Vancomycin Oral Soln 125 MG/2.5 ML UDC PO SCH ×4 (08:02→19:40)
[2020-10-03] MEDS: Aspirin Enteric Coated 81 MG Tablet PO SCH (08:03)
[2020-10-03] MEDS ORDERED: Metoclopramide 10 MG/2 ML VIAL IVP ONE (10:17)
[2020-10-03] MEDS: Budesonide/Formoterol 160/4.5 1 PUFF INH IH SCH ×2 (11:00→22:18)
[2020-10-03 11:16] LABS: INR 1.6; Prothrombin Time 18.5 Seconds (9.4-12.1)
[2020-10-03 13:27] LABS: Nucleated Red Blood Cells 0.2 /100 WBC (0)
[2020-10-03 13:29] LABS: Hematocrit 24.9 % (37.5-50.1); Hemoglobin 8.2 g/dL (12.9-16.9); Immature Platelets 17.1 % (1.1-6.1); Lymphocytes # 2.3 K/mcL (0.6-4.6); Mean Corpuscular HGB Conc 32.9 g/dL (31.6-35.5); Mean Corpuscular Hemoglobin 29.5 pg (28.0-33.3); Mean Corpuscular Volume 89.6 fL (83.0-100.0); Red Blood Count 2.78 M/mcL (4.19-5.50); White Blood Count 25.2 K/mcL (4.3-11.1)
[2020-10-03 13:33] LABS: Platelet Count 62 K/mcL (140-400)
[2020-10-03 13:50] LABS: Anisocytosis 1+ (Not Present); Large Platelets Present (Not Present); Monocytes # 0.3 K/mcL (0.0-1.3); Neutrophils # 21.9 K/mcL (1.6-8.9); Platelet Estimate Marked Decrease (Normal)
[2020-10-03 20:31] LABS: Basophils % 0.3 %; Hemoglobin 8.5 g/dL (12.9-16.9); Lymphocytes % 9.9 %
[2020-10-03 20:33] LABS: Basophils # 0.1 K/mcL (0.0-0.2); Eosinophils # 0.1 K/mcL (0.0-0.6); Eosinophils % 0.4 %; Hematocrit 25.9 % (37.5-50.1); Immature Granulocytes % 5.2 % (0-4); Immature Platelets 19.3 % (1.1-6.1); Lymphocytes # 2.5 K/mcL (0.6-4.6); Mean Corpuscular HGB Conc 32.8 g/dL (31.6-35.5); Mean Corpuscular Hemoglobin 29.3 pg (28.0-33.3); Mean Corpuscular Volume 89.3 fL (83.0-100.0); Mean Platelet Volume 12.9 fL (9.4-12.4); Monocytes # 0.8 K/mcL (0.0-1.3); Monocytes % 3.3 %; Neutrophils # 20.1 K/mcL (1.6-8.9); Nucleated Red Blood Cells 0.2 /100 WBC (0); Red Cell Distribution Width 16.7 % (11.5-14.5); Segmented Neutrophils % 80.9 %; White Blood Count 24.8 K/mcL (4.3-11.1)
[2020-10-03 20:36] LABS: Platelet Count 72 K/mcL (140-400)
[2020-10-04] MEDS: MetroNIDAZOLE 500 MG/100 ML 500 MG/100 ML BAG IVPB SCH ×4 (00:26→23:09)
[2020-10-04 01:22] LABS: Basophils % 0.3 %; Segmented Neutrophils % 83.9 %; White Blood Count 22.5 K/mcL (4.3-11.1)
[2020-10-04 01:23] LABS: Basophils # 0.1 K/mcL (0.0-0.2); Eosinophils # 0.1 K/mcL (0.0-0.6); Eosinophils % 0.5 %; Immature Granulocytes % 4.6 % (0-4); Immature Platelets 19.2 % (1.1-6.1); Lymphocytes # 1.8 K/mcL (0.6-4.6); Mean Corpuscular Hemoglobin 28.7 pg (28.0-33.3); Mean Corpuscular Volume 89.6 fL (83.0-100.0); Mean Platelet Volume 11.8 fL (9.4-12.4); Monocytes # 0.6 K/mcL (0.0-1.3); Monocytes % 2.7 %; Neutrophils # 18.9 K/mcL (1.6-8.9); Nucleated Red Blood Cells 0.2 /100 WBC (0); Red Blood Count 2.79 M/mcL (4.19-5.50); Red Cell Distribution Width 16.8 % (11.5-14.5)
[2020-10-04 01:25] LABS: Platelet Count 64 K/mcL (140-400)
[2020-10-04] MEDS: PrismaSATE BGK 4/2.5 5,000 ML CRRT SCH ×10 (02:13→20:04)
[2020-10-04 03:37] LABS: Basophils % 0.2 %; Hematocrit 24.2 % (37.5-50.1); Nucleated Red Blood Cells 0.1 /100 WBC (0); Red Blood Count 2.69 M/mcL (4.19-5.50)
[2020-10-04 03:39] LABS: Eosinophils # 0.1 K/mcL (0.0-0.6); Eosinophils % 0.6 %; Hemoglobin 7.8 g/dL (12.9-16.9); Immature Granulocytes % 4.3 % (0-4); Immature Platelets 19.4 % (1.1-6.1); Lymphocytes # 1.9 K/mcL (0.6-4.6); Lymphocytes % 9.2 %; Mean Corpuscular HGB Conc 32.2 g/dL (31.6-35.5); Monocytes # 0.6 K/mcL (0.0-1.3); Neutrophils # 16.6 K/mcL (1.6-8.9); Red Cell Distribution Width 16.8 % (11.5-14.5); Segmented Neutrophils % 82.7 %; White Blood Count 20.1 K/mcL (4.3-11.1)
[2020-10-04 03:41] LABS: Platelet Count 60 K/mcL (140-400)
[2020-10-04 03:52] LABS: Platelet Estimate Slight Decrease (Normal)
[2020-10-04 03:53] LABS: BUN/Creatinine Ratio 21 (6-26); Blood Urea Nitrogen 18 mg/dL (8-23); Calcium 8.1 mg/dL (8.6-10.3); Carbon Dioxide 28 mEq/L (23-29); Chloride 106 mEq/L (98-107); Glucose 69 mg/dL (70-105); Magnesium 2.2 mg/dL (1.6-2.6); Osmolality,Calculated 280 (280-300); Potassium 4.2 mEq/L (3.5-5.1); Sodium 135 mEq/L (136-145); eGFR For African Americans > 60 (> 60); eGFR For Non-African Americans > 60 (> 60)
[2020-10-04] MEDS: Insulin LISPRO 300 UNITS/3 ML VIAL SUBQ SCH ×6 (03:58→23:10)
[2020-10-04] MEDS: Ipratropium/Albuterol Neb 3 ML IH SCH ×4 (04:01→22:21)
[2020-10-04] MEDS: Artificial Tears SOLN 15 ML BOTTLE BOTH EYES SCH ×6 (04:05→23:08)
[2020-10-04] MEDS: FentaNYL (PF) 1,000 MCG/100 ML IV.SOLN IVC SCH ×2 (04:05→22:16)
[2020-10-04] MEDS: Cefepime HCl 2,000 MG in Water for inj. (sterile) 20 ML IVP SCH ×2 (05:20→17:41)
[2020-10-04 05:21] LABS: ABG Base Excess 3 mEq/L (-2 to 3); ABG HCO3 29 mEq/L (21-27); ABG Oxygen Saturation 94 % (95-98); ABG PCO2 52 mmHg (35-45); ABG PH 7.35 pH Units (7.32-7.45); ABG PO2 77 mmHg (85-104); ABG TCO2 30 mEq/L (20-26); Blood Gas Modality ASSIST CONTROL; Blood Gas VT 450 cc
[2020-10-04] MEDS: Chlorhexidine Rinse 15 ML MOUTHWASH MM SCH ×2 (08:43→19:25)
[2020-10-04] MEDS: Aspirin Enteric Coated 81 MG Tablet PO SCH (08:43)
[2020-10-04] MEDS: Pantoprazole 40 MG VIAL IVP SCH ×2 (08:43→20:02)
[2020-10-04] MEDS: Docusate Oral Soln 100 MG/10 ML UDC GTUBE SCH ×2 (08:43→19:33)
[2020-10-04] MEDS: Vancomycin Oral Soln 125 MG/2.5 ML UDC PO SCH ×4 (08:44→20:02)
[2020-10-04] MEDS: *HR* Dextrose 50 % in Water (Vial) 50 ML VIAL IVP PRN (08:49)
[2020-10-04] MEDS: Budesonide/Formoterol 160/4.5 1 PUFF INH IH SCH ×2 (09:03→22:22)
[2020-10-04] MEDS ORDERED: *HR* Heparin 5,000 UNIT/ML VIAL ONE (09:16)
[2020-10-04 10:03] LABS: Eosinophils % 0.7 %; Hematocrit 22.4 % (37.5-50.1); Hemoglobin 7.3 g/dL (12.9-16.9); Immature Granulocytes % 4.2 % (0-4); Lymphocytes % 8.6 %; Mean Corpuscular HGB Conc 32.6 g/dL (31.6-35.5); Mean Corpuscular Hemoglobin 29.2 pg (28.0-33.3); Mean Corpuscular Volume 89.6 fL (83.0-100.0); Nucleated Red Blood Cells 0.1 /100 WBC (0)
[2020-10-04 10:05] LABS: Basophils % 0.2 %; Eosinophils # 0.1 K/mcL (0.0-0.6); Immature Platelets 18.1 % (1.1-6.1); Lymphocytes # 1.6 K/mcL (0.6-4.6); Mean Platelet Volume 12.7 fL (9.4-12.4); Monocytes # 0.6 K/mcL (0.0-1.3); Monocytes % 3.1 %; Neutrophils # 15.4 K/mcL (1.6-8.9); Red Cell Distribution Width 16.8 % (11.5-14.5); Segmented Neutrophils % 83.2 %; White Blood Count 18.5 K/mcL (4.3-11.1)
[2020-10-04 10:08] LABS: Platelet Count 55 K/mcL (140-400)
[2020-10-04] MEDS: Dexmedetomidine HCl 400 MCG/100 ML MLS IVC SCH ×3 (11:02→23:29)
[2020-10-04] MEDS: Norepinephrine 4 MG/254 ML IV.SOLN IVC SCH (11:02)
[2020-10-04] MEDS ORDERED: 0.9 % Sodium Chloride 250 ML ONE (14:37)
[2020-10-04] MEDS ORDERED: *HR* Metoprolol 5 MG/5 ML VIAL IVP PRN (14:44)
[2020-10-04] MEDS ORDERED: *HR* Metoprolol 5 MG/5 ML VIAL IVP ONE (14:46)
[2020-10-04 15:36] LABS: Hemoglobin 8.2 g/dL (12.9-16.9); Immature Platelets 22.6 % (1.1-6.1); Mean Corpuscular HGB Conc 31.5 g/dL (31.6-35.5); Mean Corpuscular Hemoglobin 28.7 pg (28.0-33.3); Mean Corpuscular Volume 90.9 fL (83.0-100.0); Mean Platelet Volume 13.4 fL (9.4-12.4); Nucleated Red Blood Cells 0.1 /100 WBC (0); Red Blood Count 2.86 M/mcL (4.19-5.50); White Blood Count 28.4 K/mcL (4.3-11.1)
[2020-10-04 15:45] LABS: Platelet Count 76 K/mcL (140-400)
[2020-10-04] MEDS: DilTIAZem 50 MG/50 ML IV.SOLN IVC SCH ×2 (15:47→20:02)
[2020-10-04 16:04] LABS: Anisocytosis 1+ (Not Present); Lymphocytes # 2.8 K/mcL (0.6-4.6); Monocytes # 0.6 K/mcL (0.0-1.3); Platelet Estimate Decreased (Normal)
[2020-10-04 16:05] LABS: Microcytosis Present (Not Present); Polychromasia 1+ (Not Present)
[2020-10-04 21:12] LABS: Hemoglobin 9.2 g/dL (12.9-16.9)
[2020-10-04 21:13] LABS: Hematocrit 28.4 % (37.5-50.1)
[2020-10-05] MEDS: PrismaSATE BGK 4/2.5 5,000 ML CRRT SCH ×2 (02:03)
[2020-10-05] MEDS: Artificial Tears SOLN 15 ML BOTTLE BOTH EYES SCH ×5 (03:06→20:00)
[2020-10-05] MEDS: Insulin LISPRO 300 UNITS/3 ML VIAL SUBQ SCH ×5 (03:06→20:13)
[2020-10-05] MEDS: DilTIAZem 50 MG/50 ML IV.SOLN IVC SCH (03:07)
[2020-10-05 03:29] LABS: Basophils % 0.2 %; Eosinophils # 0.1 K/mcL (0.0-0.6); Eosinophils % 0.5 %; Hematocrit 28.7 % (37.5-50.1); Hemoglobin 9.3 g/dL (12.9-16.9); Immature Granulocytes % 2.7 % (0-4); Immature Platelets 21.6 % (1.1-6.1); Lymphocytes # 1.2 K/mcL (0.6-4.6); Lymphocytes % 6.8 %; Mean Corpuscular HGB Conc 32.4 g/dL (31.6-35.5); Mean Corpuscular Hemoglobin 28.9 pg (28.0-33.3); Mean Corpuscular Volume 89.1 fL (83.0-100.0); Monocytes # 0.5 K/mcL (0.0-1.3); Monocytes % 2.5 %; Neutrophils # 15.8 K/mcL (1.6-8.9); Red Blood Count 3.22 M/mcL (4.19-5.50); Red Cell Distribution Width 16.1 % (11.5-14.5); Segmented Neutrophils % 87.3 %; White Blood Count 18.1 K/mcL (4.3-11.1)
[2020-10-05 03:30] LABS: Platelet Count 52 K/mcL (140-400)
[2020-10-05 03:30] LABS: VBG Ionized Calcium 1.16 mmol/L (1.15-1.35)
[2020-10-05 03:48] LABS: Alanine Aminotransferase 14 Units/L (7-52); Albumin 2.6 g/dL (3.5-5.7); Alkaline Phosphatase 98 Units/L (34-104); Aspartate Amino Transferase 33 Units/L (13-39); BUN/Creatinine Ratio 22 (6-26); Bilirubin,Total 1.8 mg/dL (0.3-1.0); Blood Urea Nitrogen 15 mg/dL (8-23); Calcium 7.9 mg/dL (8.6-10.3); Carbon Dioxide 26 mEq/L (23-29); Chloride 105 mEq/L (98-107); Globulin 2.5 g/dL (2.4-3.5); Glucose 96 mg/dL (70-105); Magnesium 2.1 mg/dL (1.6-2.6); Osmolality,Calculated 283 (280-300); Potassium 4.1 mEq/L (3.5-5.1); Sodium 136 mEq/L (136-145); Total Protein 5.1 g/dL (6.4-8.9); eGFR For African Americans > 60 (> 60); eGFR For Non-African Americans > 60 (> 60)
[2020-10-05] MEDS ORDERED: *HR* Atropine Sulfate 1 MG/10 ML SYRINGE ONE (04:34)
[2020-10-05] MEDS: Ipratropium/Albuterol Neb 3 ML IH SCH ×4 (04:39→21:53)
[2020-10-05] MEDS: Cefepime HCl 2,000 MG in Water for inj. (sterile) 20 ML IVP SCH ×2 (05:32→17:00)
[2020-10-05] MEDS: *HR* Dextrose 50 % in Water (Vial) 50 ML VIAL IVP PRN (08:19)
[2020-10-05] MEDS: Docusate Oral Soln 100 MG/10 ML UDC GTUBE SCH (09:46)
[2020-10-05] MEDS: Pantoprazole 40 MG VIAL IVP SCH ×2 (09:47→20:12)
[2020-10-05] MEDS: Chlorhexidine Rinse 15 ML MOUTHWASH MM SCH ×2 (09:47→20:00)
[2020-10-05] MEDS: Vancomycin Oral Soln 125 MG/2.5 ML UDC PO SCH ×4 (09:47→20:12)
[2020-10-05] MEDS: MetroNIDAZOLE 500 MG/100 ML 500 MG/100 ML BAG IVPB SCH ×2 (09:47→15:40)
[2020-10-05] MEDS: Aspirin Enteric Coated 81 MG Tablet PO SCH ×2 (09:48→10:02)
[2020-10-05] MEDS: Norepinephrine 4 MG/254 ML IV.SOLN IVC SCH (09:49)
[2020-10-05] MEDS: Budesonide/Formoterol 160/4.5 1 PUFF INH IH SCH ×2 (10:07→21:53)
[2020-10-06] MEDS: Insulin LISPRO 300 UNITS/3 ML VIAL SUBQ SCH ×7 (00:19→23:33)
[2020-10-06] MEDS: MetroNIDAZOLE 500 MG/100 ML 500 MG/100 ML BAG IVPB SCH ×2 (00:19→10:05)
[2020-10-06] MEDS: Artificial Tears SOLN 15 ML BOTTLE BOTH EYES SCH ×7 (00:19→23:33)
[2020-10-06] MEDS: Ipratropium/Albuterol Neb 3 ML IH SCH ×4 (04:09→21:53)
[2020-10-06 04:14] LABS: Hematocrit 26.5 % (37.5-50.1); Lymphocytes % 7.8 %; Monocytes % 5.3 %
[2020-10-06 04:15] LABS: Basophils % 0.2 %; Eosinophils # 0.1 K/mcL (0.0-0.6); Eosinophils % 0.4 %; Hemoglobin 8.9 g/dL (12.9-16.9); Immature Platelets 15.7 % (1.1-6.1); Lymphocytes # 1.6 K/mcL (0.6-4.6); Mean Corpuscular HGB Conc 33.6 g/dL (31.6-35.5); Mean Corpuscular Hemoglobin 29.9 pg (28.0-33.3); Mean Corpuscular Volume 88.9 fL (83.0-100.0); Mean Platelet Volume 13.3 fL (9.4-12.4); Monocytes # 1.1 K/mcL (0.0-1.3); Neutrophils # 16.5 K/mcL (1.6-8.9); Red Blood Count 2.98 M/mcL (4.19-5.50); Red Cell Distribution Width 16.3 % (11.5-14.5); Segmented Neutrophils % 82.3 %; White Blood Count 20.1 K/mcL (4.3-11.1)
[2020-10-06 04:25] LABS: Platelet Count 98 K/mcL (140-400)
[2020-10-06 04:34] LABS: Calcium 8.1 mg/dL (8.6-10.3); Magnesium 2.3 mg/dL (1.6-2.6); Phosphorous 2.5 mg/dL (2.7-4.5); Potassium 4.2 mEq/L (3.5-5.1)
[2020-10-06] MEDS: Cefepime HCl 2,000 MG in Water for inj. (sterile) 20 ML IVP SCH ×2 (05:26→18:21)
[2020-10-06] MEDS: Budesonide/Formoterol 160/4.5 1 PUFF INH IH SCH ×2 (09:42→21:55)
[2020-10-06] MEDS: Pantoprazole 40 MG VIAL IVP SCH ×2 (10:04→20:26)
[2020-10-06] MEDS: Aspirin 81 MG TAB.CHEW GTUBE SCH (10:04)
[2020-10-06] MEDS: Chlorhexidine Rinse 15 ML MOUTHWASH MM SCH ×2 (10:04→20:26)
[2020-10-06] MEDS: Norepinephrine 4 MG/254 ML IV.SOLN IVC SCH (10:31)
[2020-10-06] MEDS: metroNIDAZOLE 500 MG TABLET PO SCH ×2 (14:55→20:27)
[2020-10-07] MEDS: Artificial Tears SOLN 15 ML BOTTLE BOTH EYES SCH ×4 (03:12→16:09)
[2020-10-07] MEDS: Insulin LISPRO 300 UNITS/3 ML VIAL SUBQ SCH ×4 (03:12→16:32)
[2020-10-07 03:59] LABS: Calcium 8.1 mg/dL (8.6-10.3); Magnesium 2.3 mg/dL (1.6-2.6); Phosphorous 2.9 mg/dL (2.7-4.5); Potassium 4.6 mEq/L (3.5-5.1)
[2020-10-07 04:11] LABS: Red Blood Count 2.77 M/mcL (4.19-5.50); Red Cell Distribution Width 16.8 % (11.5-14.5)
[2020-10-07 04:14] LABS: Basophils % 0.2 %; Eosinophils # 0.1 K/mcL (0.0-0.6); Eosinophils % 0.5 %; Hematocrit 24.6 % (37.5-50.1); Hemoglobin 8.1 g/dL (12.9-16.9); Immature Granulocytes % 1.7 % (0-4); Immature Platelets 13.1 % (1.1-6.1); Lymphocytes # 1.4 K/mcL (0.6-4.6); Mean Corpuscular HGB Conc 32.9 g/dL (31.6-35.5); Mean Corpuscular Hemoglobin 29.2 pg (28.0-33.3); Mean Corpuscular Volume 88.8 fL (83.0-100.0); Mean Platelet Volume 13.7 fL (9.4-12.4); Monocytes # 1.2 K/mcL (0.0-1.3); Monocytes % 5.4 %; Neutrophils # 19.8 K/mcL (1.6-8.9); Platelet Count 106 K/mcL (140-400); Segmented Neutrophils % 86.2 %
[2020-10-07 04:16] LABS: Basophils # 0.1 K/mcL (0.0-0.2)
[2020-10-07] MEDS: Ipratropium/Albuterol Neb 3 ML IH SCH ×3 (04:21→16:17)
[2020-10-07] MEDS: Cefepime HCl 2,000 MG in Water for inj. (sterile) 20 ML IVP SCH ×2 (05:05→17:51)
[2020-10-07] MEDS: Norepinephrine 4 MG/254 ML IV.SOLN IVC SCH (08:05)
[2020-10-07] MEDS: Aspirin 81 MG TAB.CHEW GTUBE SCH (08:11)
[2020-10-07] MEDS: Chlorhexidine Rinse 15 ML MOUTHWASH MM SCH (08:11)
[2020-10-07] MEDS: metroNIDAZOLE 500 MG TABLET PO SCH ×2 (08:11→14:15)
[2020-10-07] MEDS: Pantoprazole 40 MG VIAL IVP SCH (08:12)
[2020-10-07] MEDS: PrismaSATE BGK 4/2.5 5,000 ML CRRT SCH ×2 (08:13)
[2020-10-07] MEDS: FentaNYL (PF) 1,000 MCG/100 ML IV.SOLN IVC SCH (08:25)
[2020-10-07] MEDS: Budesonide/Formoterol 160/4.5 1 PUFF INH IH SCH (09:25)
[2020-10-07] MEDS: Dexmedetomidine HCl 400 MCG/100 ML MLS IVC SCH (10:05)
[2020-10-07] MEDS ORDERED: Fluconazole 400 MG/200 ML 400 MG/200 ML BAG IVPB SCH (11:30)
[2020-10-07] MEDS: DilTIAZem 50 MG/50 ML IV.SOLN IVC SCH (13:51)
[2020-10-07] MEDS ORDERED: Micafungin 100 MG in 0.9 % Sodium Chloride Mini Bag 100 ML IVPB SCH (14:30)
[2020-10-07] MEDS ORDERED: *HR* Alteplase (Cathflo) 2 MG VIAL IVP PRN (22:16)
[2020-10-07] MEDS ORDERED: *HR* Metoprolol 5 MG/5 ML VIAL IVP PRN (22:16)
[2020-10-07] MEDS ORDERED: Albuterol 2.5 MG/3 ML NEBULIZER IH PRN (22:16)
[2020-10-07] MEDS ORDERED: Naloxone 0.4 MG/ML INJ IVP PRN (22:16)
[2020-10-07] MEDS ORDERED: Dextrose Gel 15 GM/37.5 ML TUBE PO PRN ×2 (22:16)
[2020-10-07] MEDS ORDERED: Dexmedetomidine HCl 400 MCG/100 ML MLS IVC SCH (22:16)
[2020-10-07] MEDS ORDERED: Artificial Tears SOLN 15 ML BOTTLE BOTH EYES PRN (22:16)
[2020-10-08] MEDS: Artificial Tears SOLN 15 ML BOTTLE BOTH EYES SCH ×8 (00:40→23:34)
[2020-10-08] MEDS: Insulin LISPRO 300 UNITS/3 ML VIAL SUBQ SCH ×8 (00:48→23:54)
[2020-10-08] MEDS: Ipratropium/Albuterol Neb 3 ML IH SCH ×5 (03:56→21:44)
[2020-10-08] MEDS: Budesonide/Formoterol 160/4.5 1 PUFF INH IH SCH ×3 (03:56→21:44)
[2020-10-08 05:13] LABS: Mean Corpuscular HGB Conc 32.9 g/dL (31.6-35.5); Red Cell Distribution Width 17.6 % (11.5-14.5)
[2020-10-08 05:15] LABS: Basophils % 0.2 %; Eosinophils # 0.2 K/mcL (0.0-0.6); Eosinophils % 0.8 %; Hematocrit 24.3 % (37.5-50.1); Immature Granulocytes % 1.4 % (0-4); Immature Platelets 14.3 % (1.1-6.1); Lymphocytes # 1.8 K/mcL (0.6-4.6); Lymphocytes % 8.4 %; Mean Corpuscular Hemoglobin 29.2 pg (28.0-33.3); Mean Corpuscular Volume 88.7 fL (83.0-100.0); Monocytes # 1.4 K/mcL (0.0-1.3); Monocytes % 6.7 %; Neutrophils # 17.4 K/mcL (1.6-8.9); Red Blood Count 2.74 M/mcL (4.19-5.50); Segmented Neutrophils % 82.5 %; White Blood Count 21.1 K/mcL (4.3-11.1)
[2020-10-08] MEDS: Cefepime HCl 2,000 MG in Water for inj. (sterile) 20 ML IVP SCH ×2 (05:28→18:37)
[2020-10-08 05:35] LABS: Platelet Count 98 K/mcL (140-400)
[2020-10-08] MEDS: Chlorhexidine Rinse 15 ML MOUTHWASH MM SCH ×3 (07:34→19:56)
[2020-10-08] MEDS: metroNIDAZOLE 500 MG TABLET PO SCH (07:35)
[2020-10-08] MEDS: Pantoprazole 40 MG VIAL IVP SCH (07:35)
[2020-10-08] MEDS ORDERED: 0.9 % Sodium Chloride 250 ML IVC PRN (07:39)
[2020-10-08] MEDS ORDERED: *HR* Heparin 10,000 UNIT/10 ML VIAL IV PRN ×2 (07:39)
[2020-10-08] MEDS ORDERED: 0.9 % Sodium Chloride 1,000 ML PRIME SCH (07:45)
[2020-10-08 09:19] LABS: Hepatitis B Surface Antibody < 3.10 mIU/mL
[2020-10-08 10:48] LABS: Hepatitis B Surface Antigen Reactive (Nonreactive)
[2020-10-08] MEDS: Aspirin 81 MG TAB.CHEW GTUBE SCH (12:35)
[2020-10-08] MEDS: amLODIPine 5 MG TABLET PO SCH (12:36)
[2020-10-08] MEDS: carvediloL 6.25 MG TABLET PO SCH ×2 (12:36→18:36)
[2020-10-08] MEDS ORDERED: Micafungin 100 MG in 0.9 % Sodium Chloride Mini Bag 100 ML IVPB SCH (14:30)
[2020-10-08] MEDS ORDERED: Nitroglycerin 1 INCH/GM PACKET TP ONE (22:41)
[2020-10-09] MEDS: Ipratropium/Albuterol Neb 3 ML IH SCH ×4 (03:25→22:57)
[2020-10-09] MEDS: Artificial Tears SOLN 15 ML BOTTLE BOTH EYES SCH ×5 (04:15→20:54)
[2020-10-09] MEDS: Insulin LISPRO 300 UNITS/3 ML VIAL SUBQ SCH ×5 (05:15→20:53)
[2020-10-09 05:26] LABS: Basophils % 0.1 %; Hemoglobin 6.6 g/dL (12.9-16.9)
[2020-10-09 05:27] LABS: Eosinophils # 0.1 K/mcL (0.0-0.6); Eosinophils % 0.6 %; Hematocrit 19.9 % (37.5-50.1); Immature Granulocytes % 1.2 % (0-4); Immature Platelets 17.3 % (1.1-6.1); Lymphocytes # 1.9 K/mcL (0.6-4.6); Lymphocytes % 9.2 %; Mean Corpuscular HGB Conc 33.2 g/dL (31.6-35.5); Mean Corpuscular Hemoglobin 29.5 pg (28.0-33.3); Mean Corpuscular Volume 88.8 fL (83.0-100.0); Mean Platelet Volume 14.1 fL (9.4-12.4); Monocytes % 7.4 %; Red Blood Count 2.24 M/mcL (4.19-5.50); Segmented Neutrophils % 81.5 %; White Blood Count 20.9 K/mcL (4.3-11.1)
[2020-10-09 05:30] LABS: Monocytes # 1.6 K/mcL (0.0-1.3); Platelet Count 89 K/mcL (140-400)
[2020-10-09] MEDS: Cefepime HCl 2,000 MG in Water for inj. (sterile) 20 ML IVP SCH (05:39)
[2020-10-09 05:40] LABS: Potassium 4.5 mEq/L (3.5-5.1)
[2020-10-09] MEDS: carvediloL 6.25 MG TABLET PO SCH ×2 (07:54→16:32)
[2020-10-09] MEDS: amLODIPine 5 MG TABLET PO SCH (07:54)
[2020-10-09] MEDS: Aspirin 81 MG TAB.CHEW GTUBE SCH (07:54)
[2020-10-09] MEDS: Chlorhexidine Rinse 15 ML MOUTHWASH MM SCH ×2 (07:55→20:54)
[2020-10-09] MEDS: Budesonide/Formoterol 160/4.5 1 PUFF INH IH SCH ×2 (10:29→22:57)
[2020-10-09] MEDS ORDERED: 0.9 % Sodium Chloride 250 ML ONE (13:35)
[2020-10-09] MEDS ORDERED: Gadolinium Contrast Agent (WT Based) IV PRN (13:54)
[2020-10-09] MEDS ORDERED: cefTRIAXone 2,000 MG in Water for inj. (sterile) 20 ML IVP SCH (16:00)
[2020-10-09] MEDS ORDERED: Furosemide 40 MG/4 ML VIAL IVP ONE (16:00)
[2020-10-09] MEDS ORDERED: Vancomycin 1 EACH in 0.9 % Sodium Chloride 250 ML IVPB PRN (16:00)
[2020-10-09] MEDS: WATER IVPB SCH (16:49)
[2020-10-09] MEDS: ACYCLOVIR IVPB SCH (16:49)
[2020-10-09] MEDS: D5 IVPB SCH (16:49)
[2020-10-09] MEDS: Meropenem 1,000 MG in 0.9 % Sodium Chloride Mini Bag 100 ML IVPB SCH (17:56)
[2020-10-09] MEDS ORDERED: *HR* Dextrose 50 % in Water (Vial) 50 ML VIAL IVP ONE (19:57)
[2020-10-10] MEDS: Artificial Tears SOLN 15 ML BOTTLE BOTH EYES SCH ×6 (00:05→20:08)
[2020-10-10] MEDS: Ipratropium/Albuterol Neb 3 ML IH SCH ×4 (03:21→22:37)
[2020-10-10] MEDS: Insulin LISPRO 300 UNITS/3 ML VIAL SUBQ SCH ×6 (05:52→20:26)
[2020-10-10 07:48] LABS: Basophils % 0.1 %; Eosinophils # 0.2 K/mcL (0.0-0.6); Eosinophils % 0.9 %; Immature Granulocytes % 0.9 % (0-4); Lymphocytes # 1.8 K/mcL (0.6-4.6); Lymphocytes % 10.3 %; Mean Corpuscular HGB Conc 31.8 g/dL (31.6-35.5); Mean Corpuscular Hemoglobin 28.8 pg (28.0-33.3); Mean Corpuscular Volume 90.5 fL (83.0-100.0); Monocytes % 5.5 %; Neutrophils # 14.5 K/mcL (1.6-8.9); Red Blood Count 2.43 M/mcL (4.19-5.50); Red Cell Distribution Width 17.8 % (11.5-14.5); Segmented Neutrophils % 82.3 %; White Blood Count 17.6 K/mcL (4.3-11.1)
[2020-10-10 07:49] LABS: Platelet Count 81 K/mcL (140-400)
[2020-10-10] MEDS: Chlorhexidine Rinse 15 ML MOUTHWASH MM SCH ×2 (07:51→20:07)
[2020-10-10] MEDS: carvediloL 6.25 MG TABLET PO SCH (07:51)
[2020-10-10] MEDS: amLODIPine 5 MG TABLET PO SCH (07:52)
[2020-10-10 08:04] LABS: Calcium 8.3 mg/dL (8.6-10.3); Potassium 5.3 mEq/L (3.5-5.1)
[2020-10-10] MEDS ORDERED: 0.9 % Sodium Chloride 250 ML IVC PRN (08:32)
[2020-10-10] MEDS ORDERED: *HR* Heparin 10,000 UNIT/10 ML VIAL IV PRN (08:32)
[2020-10-10] MEDS: Budesonide/Formoterol 160/4.5 1 PUFF INH IH SCH ×2 (11:03→22:37)
[2020-10-10] MEDS ORDERED: Furosemide 40 MG/4 ML VIAL IVP ONE (16:34)
[2020-10-10] MEDS ORDERED: Furosemide 40 MG/4 ML VIAL ONE (16:36)
[2020-10-10] MEDS: WATER IVPB SCH (16:41)
[2020-10-10] MEDS: Meropenem 1,000 MG in 0.9 % Sodium Chloride Mini Bag 100 ML IVPB SCH (16:41)
[2020-10-10] MEDS: ACYCLOVIR IVPB SCH (16:41)
[2020-10-10] MEDS: *HR* Metoprolol 5 MG/5 ML VIAL IVP SCH (16:41)
[2020-10-10] MEDS: D5 IVPB SCH (16:41)
[2020-10-11] MEDS: *HR* Metoprolol 5 MG/5 ML VIAL IVP SCH ×4 (00:15→17:31)
[2020-10-11] MEDS: Insulin LISPRO 300 UNITS/3 ML VIAL SUBQ SCH ×6 (00:15→20:07)
[2020-10-11] MEDS: Artificial Tears SOLN 15 ML BOTTLE BOTH EYES SCH ×6 (00:15→20:22)
[2020-10-11] MEDS: Ipratropium/Albuterol Neb 3 ML IH SCH ×4 (03:21→23:09)
[2020-10-11] MEDS: amLODIPine 5 MG TABLET PO SCH (08:09)
[2020-10-11] MEDS: Chlorhexidine Rinse 15 ML MOUTHWASH MM SCH ×2 (08:10→20:21)
[2020-10-11 08:24] LABS: Basophils % 0.1 %; Hemoglobin 6.3 g/dL (12.9-16.9)
[2020-10-11 08:26] LABS: Hematocrit 19.4 % (37.5-50.1); Immature Granulocytes % 0.9 % (0-4); Immature Platelets 16.6 % (1.1-6.1); Lymphocytes # 1.6 K/mcL (0.6-4.6); Lymphocytes % 10.1 %; Mean Corpuscular HGB Conc 32.5 g/dL (31.6-35.5); Mean Corpuscular Hemoglobin 29.3 pg (28.0-33.3); Mean Corpuscular Volume 90.2 fL (83.0-100.0); Monocytes # 1.1 K/mcL (0.0-1.3); Monocytes % 6.7 %; Red Blood Count 2.15 M/mcL (4.19-5.50); Red Cell Distribution Width 17.8 % (11.5-14.5); Segmented Neutrophils % 82.2 %; White Blood Count 15.8 K/mcL (4.3-11.1)
[2020-10-11 08:32] LABS: Platelet Count 90 K/mcL (140-400)
[2020-10-11 08:43] LABS: Calcium 8.4 mg/dL (8.6-10.3); Potassium 4.5 mEq/L (3.5-5.1)
[2020-10-11] MEDS: Budesonide/Formoterol 160/4.5 1 PUFF INH IH SCH ×2 (11:19→23:09)
[2020-10-11] MEDS ORDERED: Isovue-370 500 ML BOTTLE IVP ONE (12:38)
[2020-10-11] MEDS ORDERED: 0.9 % Sodium Chloride 500 ML ONE (13:36)
[2020-10-11] MEDS: Fluconazole 200 MG/100 ML 100 MG/50 ML BAG IVPB SCH (14:49)
[2020-10-11] MEDS: D5 IVPB SCH (17:31)
[2020-10-11] MEDS: WATER IVPB SCH (17:31)
[2020-10-11] MEDS: ACYCLOVIR IVPB SCH (17:31)
[2020-10-11] MEDS: Meropenem 1,000 MG in 0.9 % Sodium Chloride Mini Bag 100 ML IVPB SCH (17:32)
[2020-10-11] MEDS ORDERED: *HR* HYDROcodone/Acet 5/325 mg TABLET PO PRN (21:56)
[2020-10-11] MEDS ORDERED: Acetaminophen 325 MG TABLET PO PRN (21:56)
[2020-10-12] MEDS: *HR* Metoprolol 5 MG/5 ML VIAL IVP SCH ×5 (00:04→23:20)
[2020-10-12] MEDS: Insulin LISPRO 300 UNITS/3 ML VIAL SUBQ SCH ×4 (00:05→12:34)
[2020-10-12] MEDS: Artificial Tears SOLN 15 ML BOTTLE BOTH EYES SCH ×7 (00:05→23:20)
[2020-10-12] MEDS: Ipratropium/Albuterol Neb 3 ML IH SCH ×4 (03:30→21:32)
[2020-10-12 04:38] LABS: Basophils % 0.2 %; Eosinophils % 0.8 %; Immature Granulocytes % 0.8 % (0-4); Mean Corpuscular Hemoglobin 30.1 pg (28.0-33.3); Red Blood Count 2.99 M/mcL (4.19-5.50)
[2020-10-12 04:40] LABS: Eosinophils # 0.2 K/mcL (0.0-0.6); Hematocrit 27.5 % (37.5-50.1); Immature Platelets 15.6 % (1.1-6.1); Lymphocytes # 2.2 K/mcL (0.6-4.6); Lymphocytes % 11.6 %; Mean Corpuscular HGB Conc 32.7 g/dL (31.6-35.5); Mean Platelet Volume 13.7 fL (9.4-12.4); Monocytes # 1.3 K/mcL (0.0-1.3); Monocytes % 6.7 %; Red Cell Distribution Width 16.7 % (11.5-14.5); Segmented Neutrophils % 79.9 %; White Blood Count 19.2 K/mcL (4.3-11.1)
[2020-10-12 04:43] LABS: Neutrophils # 15.3 K/mcL (1.6-8.9); Platelet Count 95 K/mcL (140-400)
[2020-10-12 04:57] LABS: Calcium 8.4 mg/dL (8.6-10.3); Potassium 4.8 mEq/L (3.5-5.1)
[2020-10-12 06:22] LABS: ABG Base Excess 8 mEq/L (-2 to 3); ABG HCO3 31 mEq/L (21-27); ABG Oxygen Saturation 82 % (95-98); ABG PCO2 39 mmHg (35-45); ABG PH 7.52 pH Units (7.32-7.45); ABG PO2 42 mmHg (85-104); ABG TCO2 33 mEq/L (20-26)
[2020-10-12] MEDS: FentaNYL (PF) 1,000 MCG/100 ML IV.SOLN IVC SCH (06:54)
[2020-10-12 07:57] LABS: ABG Base Excess 9 mEq/L (-2 to 3); ABG HCO3 34 mEq/L (21-27); ABG Oxygen Saturation 96 % (95-98); ABG PCO2 51 mmHg (35-45); ABG PH 7.43 pH Units (7.32-7.45); ABG PO2 83 mmHg (85-104); ABG TCO2 35 mEq/L (20-26); Blood Gas Modality ASSIST CONTROL; Blood Gas VT 450 cc
[2020-10-12] MEDS: Pantoprazole 40 MG VIAL IVP SCH (08:56)
[2020-10-12] MEDS: Chlorhexidine Rinse 15 ML MOUTHWASH MM SCH ×2 (08:57→20:33)
[2020-10-12] MEDS ORDERED: *HR* Dextrose 50 % in Water (Vial) 50 ML VIAL ONE ×3 (09:34→15:18)
[2020-10-12] MEDS: *HR* Dextrose 50 % in Water (Vial) 50 ML VIAL IVP ONE ×2 (09:37→10:15)
[2020-10-12] MEDS ORDERED: *HR* Dextrose 50 % in Water (Vial) 50 ML VIAL IVP ONE ×2 (10:59→15:24)
[2020-10-12 11:15] LABS: Influenza A PCR Negative (Negative); Influenza B PCR Negative (Negative); Resp. Syncytial Virus PCR Negative (Negative)
[2020-10-12] MEDS: Budesonide/Formoterol 160/4.5 1 PUFF INH IH SCH ×2 (11:20→21:32)
[2020-10-12 11:21] LABS: SARS-CoV-2 by PCR (In House) Negative (Negative)
[2020-10-12 11:52] LABS: HSV Source MOUTH
[2020-10-12] MEDS: D10% in Water 500 ML IVC SCH ×4 (12:29→23:20)
[2020-10-12] MEDS: amLODIPine 5 MG TABLET PO SCH (12:33)
[2020-10-12] MEDS ORDERED: Fluconazole 200 MG/100 ML 100 MG/50 ML BAG IVPB SCH (13:00)
[2020-10-12 13:24] LABS: Hematocrit 26.9 % (37.5-50.1)
[2020-10-12 13:26] LABS: Hemoglobin 8.8 g/dL (12.9-16.9)
[2020-10-12 13:31] LABS: HSV 1 DNA DETECTED (Not Detect); HSV 2 DNA Not Detected (Not Detect)
[2020-10-12 15:23] LABS: Hepatitis Be Antibody NEGATIVE (Negative)
[2020-10-12] MEDS ORDERED: D10% in Water 500 ML IVC SCH (15:31)
[2020-10-12] MEDS ORDERED: Vancomycin 500 MG in 0.9 % Sodium Chloride Mini Bag 100 ML IVPB ONE (16:00)
[2020-10-12] MEDS: Meropenem 1,000 MG in 0.9 % Sodium Chloride Mini Bag 100 ML IVPB SCH (16:35)
[2020-10-12] MEDS: ACYCLOVIR IVPB SCH (17:33)
[2020-10-12] MEDS: WATER IVPB SCH (17:33)
[2020-10-12] MEDS: D5 IVPB SCH (17:33)
[2020-10-12 17:53] LABS: Appearance of Body Fluid Hazy (Clear); Volume of Body Fluid 20 mL
[2020-10-12 20:02] LABS: Hematocrit 26.1 % (37.5-50.1); Hemoglobin 8.4 g/dL (12.9-16.9)
[2020-10-12] MEDS: Fluconazole 200 MG/100 ML 100 MG/50 ML BAG IVPB SCH (23:20)
[2020-10-13] MEDS: Ipratropium/Albuterol Neb 3 ML IH SCH ×4 (03:47→21:16)
[2020-10-13] MEDS: D10% in Water 500 ML IVC SCH ×5 (03:54→23:57)
[2020-10-13] MEDS: Artificial Tears SOLN 15 ML BOTTLE BOTH EYES SCH ×6 (03:54→23:40)
[2020-10-13 04:00] LABS: ABG Base Excess 7 mEq/L (-2 to 3); ABG HCO3 33 mEq/L (21-27); ABG Oxygen Saturation 95 % (95-98); ABG PCO2 56 mmHg (35-45); ABG PH 7.38 pH Units (7.32-7.45); ABG PO2 77 mmHg (85-104); ABG TCO2 35 mEq/L (20-26); Blood Gas Modality ASSIST CONTROL; Blood Gas VT 450 cc
[2020-10-13 04:01] LABS: Basophils % 0.1 %; Eosinophils # 0.1 K/mcL (0.0-0.6); Hematocrit 25.1 % (37.5-50.1); Hemoglobin 8.1 g/dL (12.9-16.9); Immature Granulocytes % 0.7 % (0-4); Lymphocytes # 0.9 K/mcL (0.6-4.6); Lymphocytes % 7.7 %; Mean Corpuscular HGB Conc 32.3 g/dL (31.6-35.5); Mean Corpuscular Hemoglobin 30.2 pg (28.0-33.3); Mean Corpuscular Volume 93.7 fL (83.0-100.0); Mean Platelet Volume 13.6 fL (9.4-12.4); Monocytes # 0.5 K/mcL (0.0-1.3); Monocytes % 4.1 %; Neutrophils # 10.4 K/mcL (1.6-8.9); Red Blood Count 2.68 M/mcL (4.19-5.50); Red Cell Distribution Width 17.4 % (11.5-14.5); Segmented Neutrophils % 86.4 %
[2020-10-13 04:02] LABS: Platelet Count 76 K/mcL (140-400)
[2020-10-13 04:19] LABS: Potassium 4.4 mEq/L (3.5-5.1)
[2020-10-13] MEDS: *HR* Metoprolol 5 MG/5 ML VIAL IVP SCH ×4 (06:12→23:40)
[2020-10-13] MEDS: Pantoprazole 40 MG VIAL IVP SCH (06:12)
[2020-10-13] MEDS: FentaNYL (PF) 1,000 MCG/100 ML IV.SOLN IVC SCH ×2 (06:13→23:15)
[2020-10-13] MEDS ORDERED: 0.9 % Sodium Chloride 250 ML IVC PRN (07:18)
[2020-10-13] MEDS ORDERED: *HR* Heparin 10,000 UNIT/10 ML VIAL IV PRN (07:18)
[2020-10-13] MEDS ORDERED: Albumin 25% 25gram/100mL 25 GM/100 ML IV.SOLN IVPB PRN (07:18)
[2020-10-13] MEDS ORDERED: 0.9 % Sodium Chloride 1,000 ML PRIME SCH (07:30)
[2020-10-13] MEDS: Chlorhexidine Rinse 15 ML MOUTHWASH MM SCH ×2 (07:52→20:16)
[2020-10-13] MEDS: Budesonide/Formoterol 160/4.5 1 PUFF INH IH SCH ×2 (09:56→21:16)
[2020-10-13] MEDS ORDERED: Vancomycin 1 EACH in 0.9 % Sodium Chloride 250 ML IVPB SCH (10:00)
[2020-10-13] MEDS ORDERED: *HR* Etomidate 20 MG/10 ML AMPUL IVP ONE (10:27)
[2020-10-13] MEDS ORDERED: *HR* Midazolam HCl 5 MG/5 ML VIAL IVP ONE (10:27)
[2020-10-13] MEDS ORDERED: *HR* Dextrose 50 % in Water (Vial) 50 ML VIAL IVP ONE (12:00)
[2020-10-13] MEDS ORDERED: *HR* Dextrose 50 % in Water (Vial) 50 ML VIAL ONE (12:02)
[2020-10-13] MEDS: amLODIPine 5 MG TABLET PO SCH (12:14)
[2020-10-13] MEDS: Meropenem 1,000 MG in 0.9 % Sodium Chloride Mini Bag 100 ML IVPB SCH (17:06)
[2020-10-13] MEDS: ACYCLOVIR IVPB SCH (17:09)
[2020-10-13] MEDS: WATER IVPB SCH (17:09)
[2020-10-13] MEDS: D5 IVPB SCH (17:09)
[2020-10-14] MEDS: Ipratropium/Albuterol Neb 3 ML IH SCH ×4 (03:32→23:06)
[2020-10-14 03:43] LABS: ABG Base Excess 8 mEq/L (-2 to 3); ABG HCO3 34 mEq/L (21-27); ABG Oxygen Saturation 97 % (95-98); ABG PCO2 54 mmHg (35-45); ABG PO2 91 mmHg (85-104); ABG TCO2 35 mEq/L (20-26); Blood Gas VT 450 cc
[2020-10-14] MEDS: D10% in Water 500 ML IVC SCH ×5 (03:46→23:14)
[2020-10-14] MEDS: Artificial Tears SOLN 15 ML BOTTLE BOTH EYES SCH ×6 (03:46→23:14)
[2020-10-14 03:56] LABS: Basophils % 0.1 %; Hemoglobin 7.4 g/dL (12.9-16.9); INR 1.2; Prothrombin Time 13.4 Seconds (9.4-12.1)
[2020-10-14 03:58] LABS: Eosinophils # 0.2 K/mcL (0.0-0.6); Eosinophils % 2.3 %; Immature Granulocytes % 0.7 % (0-4); Immature Platelets 12.9 % (1.1-6.1); Lymphocytes # 0.7 K/mcL (0.6-4.6); Lymphocytes % 7.8 %; Mean Corpuscular HGB Conc 32.2 g/dL (31.6-35.5); Mean Corpuscular Hemoglobin 31.1 pg (28.0-33.3); Mean Corpuscular Volume 96.6 fL (83.0-100.0); Mean Platelet Volume 13.4 fL (9.4-12.4); Monocytes # 0.5 K/mcL (0.0-1.3); Monocytes % 5.2 %; Red Blood Count 2.38 M/mcL (4.19-5.50); Red Cell Distribution Width 17.9 % (11.5-14.5); Segmented Neutrophils % 83.9 %; White Blood Count 9.5 K/mcL (4.3-11.1)
[2020-10-14 04:08] LABS: Calcium 7.9 mg/dL (8.6-10.3)
[2020-10-14 04:09] LABS: Albumin/Globulin Ratio 0.7 (1.1-2.2); Bilirubin,Direct 0.3 mg/dL (0.0-0.2); Bilirubin,Indirect 0.5 mg/dL (0.0-1.0); Bilirubin,Total 0.8 mg/dL (0.3-1.0); Globulin 2.8 g/dL (2.4-3.5); Magnesium 1.9 mg/dL (1.6-2.6); Phosphorous 5.2 mg/dL (2.7-4.5); Total Protein 4.8 g/dL (6.4-8.9)
[2020-10-14 04:14] LABS: Platelet Count 70 K/mcL (140-400)
[2020-10-14] MEDS: *HR* Metoprolol 5 MG/5 ML VIAL IVP SCH ×4 (05:05→23:14)
[2020-10-14] MEDS: Pantoprazole 40 MG VIAL IVP SCH (05:58)
[2020-10-14] MEDS: amLODIPine 5 MG TABLET PO SCH (07:55)
[2020-10-14] MEDS: Chlorhexidine Rinse 15 ML MOUTHWASH MM SCH ×2 (07:55→20:51)
[2020-10-14 07:57] LABS: Hepatitis Be Antigen POSITIVE (Negative)
[2020-10-14 09:49] LABS: Hematocrit 23.7 % (37.5-50.1); Hemoglobin 7.6 g/dL (12.9-16.9)
[2020-10-14] MEDS: Budesonide/Formoterol 160/4.5 1 PUFF INH IH SCH ×2 (10:46→23:06)
[2020-10-14] MEDS ORDERED: *HR* Dextrose 50 % in Water (Vial) 50 ML VIAL IVP PRN (11:51)
[2020-10-14 15:20] LABS: Hematocrit 22.7 % (37.5-50.1); Hemoglobin 7.3 g/dL (12.9-16.9)
[2020-10-14] MEDS: Meropenem 1,000 MG in 0.9 % Sodium Chloride Mini Bag 100 ML IVPB SCH (16:31)
[2020-10-14] MEDS: Nystatin SUSP 5 ML UD.LIQ PO SCH ×2 (16:31→20:51)
[2020-10-14] MEDS: D5 IVPB SCH (17:22)
[2020-10-14] MEDS: WATER IVPB SCH (17:22)
[2020-10-14] MEDS: ACYCLOVIR IVPB SCH (17:22)
[2020-10-14 21:03] LABS: Hematocrit 21.7 % (37.5-50.1); Hemoglobin 6.9 g/dL (12.9-16.9)
[2020-10-14] MEDS ORDERED: 0.9 % Sodium Chloride 250 ML ONE (22:28)
[2020-10-14] MEDS ORDERED: 0.9 % Sodium Chloride 250 ML IVC SCH (22:30)
[2020-10-15] MEDS: Ipratropium/Albuterol Neb 3 ML IH SCH ×4 (03:26→21:55)
[2020-10-15] MEDS: Artificial Tears SOLN 15 ML BOTTLE BOTH EYES SCH ×5 (03:43→20:58)
[2020-10-15] MEDS: D10% in Water 500 ML IVC SCH (03:44)
[2020-10-15] MEDS: FentaNYL (PF) 1,000 MCG/100 ML IV.SOLN IVC SCH (03:44)
[2020-10-15 03:54] LABS: Basophils % 0.2 %
[2020-10-15 03:56] LABS: Eosinophils # 0.7 K/mcL (0.0-0.6); Eosinophils % 7.3 %; Hematocrit 26.2 % (37.5-50.1); Hemoglobin 8.5 g/dL (12.9-16.9); Immature Granulocytes % 0.6 % (0-4); Immature Platelets 13.8 % (1.1-6.1); Lymphocytes # 1.2 K/mcL (0.6-4.6); Mean Corpuscular HGB Conc 32.4 g/dL (31.6-35.5); Mean Corpuscular Hemoglobin 30.5 pg (28.0-33.3); Mean Corpuscular Volume 93.9 fL (83.0-100.0); Mean Platelet Volume 13.5 fL (9.4-12.4); Monocytes # 0.6 K/mcL (0.0-1.3); Monocytes % 6.8 %; Neutrophils # 6.5 K/mcL (1.6-8.9); Red Blood Count 2.79 M/mcL (4.19-5.50); Segmented Neutrophils % 72.1 %
[2020-10-15 04:04] LABS: Platelet Count 66 K/mcL (140-400)
[2020-10-15 04:07] LABS: Magnesium 1.9 mg/dL (1.6-2.6); Phosphorous 5.7 mg/dL (2.7-4.5); Potassium 5.2 mEq/L (3.5-5.1)
[2020-10-15] MEDS: *HR* Metoprolol 5 MG/5 ML VIAL IVP SCH ×2 (05:50→13:08)
[2020-10-15] MEDS: Pantoprazole 40 MG VIAL IVP SCH (05:50)
[2020-10-15] MEDS: amLODIPine 5 MG TABLET PO SCH (08:14)
[2020-10-15] MEDS: Chlorhexidine Rinse 15 ML MOUTHWASH MM SCH ×2 (08:14→20:56)
[2020-10-15] MEDS: Nystatin SUSP 5 ML UD.LIQ PO SCH ×4 (08:14→20:56)
[2020-10-15] MEDS ORDERED: *HR* Heparin 10,000 UNIT/10 ML VIAL IV PRN (08:43)
[2020-10-15] MEDS ORDERED: 0.9 % Sodium Chloride 250 ML IVC PRN (08:43)
[2020-10-15] MEDS: Budesonide/Formoterol 160/4.5 1 PUFF INH IH SCH ×2 (10:45→21:58)
[2020-10-15] MEDS ORDERED: Lidocaine Viscous Oral Soln 15 ML SOLUTION ONE (11:49)
[2020-10-15] MEDS ORDERED: *HR* FentaNYL (PF) 100 MCG/2 ML VIAL IVP PRN (11:58)
[2020-10-15] MEDS: *HR* Midazolam HCl 2 MG/2 ML VIAL IVP PRN ×2 (12:26→12:28)
[2020-10-15] MEDS: ACYCLOVIR IVPB SCH (20:57)
[2020-10-15] MEDS: WATER IVPB SCH (20:57)
[2020-10-15] MEDS: D5 IVPB SCH (20:57)
[2020-10-15] MEDS: Meropenem 1,000 MG in 0.9 % Sodium Chloride Mini Bag 100 ML IVPB SCH (20:57)
[2020-10-16] MEDS: Artificial Tears SOLN 15 ML BOTTLE BOTH EYES SCH ×3 (00:05→08:42)
[2020-10-16 03:31] LABS: Hematocrit 25.8 % (37.5-50.1); Immature Granulocytes % 0.7 % (0-4)
[2020-10-16 03:33] LABS: Basophils % 0.3 %; Eosinophils # 1.2 K/mcL (0.0-0.6); Eosinophils % 13.3 %; Hemoglobin 8.5 g/dL (12.9-16.9); Lymphocytes # 1.2 K/mcL (0.6-4.6); Mean Corpuscular HGB Conc 32.9 g/dL (31.6-35.5); Mean Corpuscular Hemoglobin 30.4 pg (28.0-33.3); Mean Corpuscular Volume 92.1 fL (83.0-100.0); Mean Platelet Volume 13.2 fL (9.4-12.4); Monocytes # 0.6 K/mcL (0.0-1.3); Monocytes % 6.7 %; Neutrophils # 5.9 K/mcL (1.6-8.9); Platelet Count 49 K/mcL (140-400); Red Cell Distribution Width 17.8 % (11.5-14.5); White Blood Count 8.9 K/mcL (4.3-11.1)
[2020-10-16] MEDS: Ipratropium/Albuterol Neb 3 ML IH SCH ×4 (03:38→21:59)
[2020-10-16 03:52] LABS: Albumin 2.3 g/dL (3.5-5.7); Albumin/Globulin Ratio 0.7 (1.1-2.2); Bilirubin,Direct 0.5 mg/dL (0.0-0.2); Bilirubin,Indirect 0.4 mg/dL (0.0-1.0); Bilirubin,Total 0.9 mg/dL (0.3-1.0); Calcium 8.2 mg/dL (8.6-10.3); Globulin 3.2 g/dL (2.4-3.5); Phosphorous 3.8 mg/dL (2.7-4.5); Total Protein 5.5 g/dL (6.4-8.9)
[2020-10-16] MEDS: Pantoprazole 40 MG VIAL IVP SCH (06:12)
[2020-10-16] MEDS: FentaNYL (PF) 1,000 MCG/100 ML IV.SOLN IVC SCH (06:12)
[2020-10-16] MEDS: *HR* OxyCODONE Immed Rel 5 MG TABLET PO PRN ×2 (08:40→15:18)
[2020-10-16] MEDS: Aspirin 81 MG TAB.CHEW GTUBE SCH (08:40)
[2020-10-16] MEDS: Chlorhexidine Rinse 15 ML MOUTHWASH MM SCH ×2 (08:41→20:39)
[2020-10-16] MEDS: Nystatin SUSP 5 ML UD.LIQ PO SCH ×4 (08:41→20:40)
[2020-10-16] MEDS: amLODIPine 5 MG TABLET PO SCH (08:41)
[2020-10-16] MEDS: Budesonide/Formoterol 160/4.5 1 PUFF INH IH SCH ×2 (09:32→22:00)
[2020-10-16] MEDS: Dexmedetomidine HCl 400 MCG/100 ML MLS IVC SCH (13:30)
[2020-10-16] MEDS: Meropenem 1,000 MG in 0.9 % Sodium Chloride Mini Bag 100 ML IVPB SCH (20:39)
[2020-10-16] MEDS: WATER IVPB SCH (20:40)
[2020-10-16] MEDS: D5 IVPB SCH (20:40)
[2020-10-16] MEDS: ACYCLOVIR IVPB SCH (20:40)
[2020-10-17] MEDS: Ipratropium/Albuterol Neb 3 ML IH SCH ×4 (04:00→22:05)
[2020-10-17 04:21] LABS: Eosinophils % 17.2 %; Hematocrit 24.5 % (37.5-50.1); Immature Granulocytes % 0.7 % (0-4); Mean Corpuscular Volume 93.9 fL (83.0-100.0); Red Blood Count 2.61 M/mcL (4.19-5.50)
[2020-10-17 04:23] LABS: Basophils % 0.2 %; Eosinophils # 1.7 K/mcL (0.0-0.6); Hemoglobin 7.9 g/dL (12.9-16.9); Immature Platelets 8.9 % (1.1-6.1); Lymphocytes # 1.4 K/mcL (0.6-4.6); Lymphocytes % 13.6 %; Mean Corpuscular HGB Conc 32.2 g/dL (31.6-35.5); Mean Corpuscular Hemoglobin 30.3 pg (28.0-33.3); Mean Platelet Volume 11.4 fL (9.4-12.4); Monocytes # 0.9 K/mcL (0.0-1.3); Monocytes % 8.5 %; Red Cell Distribution Width 17.9 % (11.5-14.5); Segmented Neutrophils % 59.8 %
[2020-10-17] MEDS: Dexmedetomidine HCl 400 MCG/100 ML MLS IVC SCH (04:23)
[2020-10-17 04:31] LABS: Platelet Count 68 K/mcL (140-400)
[2020-10-17 04:41] LABS: Calcium 8.4 mg/dL (8.6-10.3); Magnesium 2.3 mg/dL (1.6-2.6); Phosphorous 4.1 mg/dL (2.7-4.5)
[2020-10-17] MEDS: Pantoprazole 40 MG VIAL IVP SCH (05:14)
[2020-10-17] MEDS: *HR* OxyCODONE Immed Rel 5 MG TABLET PO PRN ×2 (05:45→10:42)
[2020-10-17] MEDS ORDERED: 0.9 % Sodium Chloride 250 ML IVC PRN (07:17)
[2020-10-17] MEDS: Budesonide/Formoterol 160/4.5 1 PUFF INH IH SCH ×2 (09:48→22:07)
[2020-10-17] MEDS: Nystatin SUSP 5 ML UD.LIQ PO SCH ×4 (10:39→22:35)
[2020-10-17] MEDS: Chlorhexidine Rinse 15 ML MOUTHWASH MM SCH ×2 (10:39→22:24)
[2020-10-17] MEDS: Aspirin 81 MG TAB.CHEW GTUBE SCH (10:40)
[2020-10-17] MEDS: amLODIPine 5 MG TABLET PO SCH (10:40)
[2020-10-17 12:18] LABS: LDH,Pleural Fluid 97 Units/L (No Ref Range); Total Protein,Pleural Fluid < 2.0 g/dL
[2020-10-17] MEDS ORDERED: *HR* Heparin 10,000 UNIT/10 ML VIAL ONE (14:25)
[2020-10-17 18:13] LABS: HSV Source BAL
[2020-10-17] MEDS: WATER IVPB SCH (22:22)
[2020-10-17] MEDS: ACYCLOVIR IVPB SCH (22:22)
[2020-10-17] MEDS: D5 IVPB SCH (22:22)
[2020-10-17] MEDS: Meropenem 1,000 MG in 0.9 % Sodium Chloride Mini Bag 100 ML IVPB SCH (22:33)
[2020-10-17 22:42] LABS: Hemoglobin 8.2 g/dL (12.9-16.9)
[2020-10-17 22:44] LABS: Hematocrit 25.5 % (37.5-50.1)
[2020-10-18] MEDS: Ipratropium/Albuterol Neb 3 ML IH SCH ×4 (04:37→21:22)
[2020-10-18] MEDS: Pantoprazole 40 MG VIAL IVP SCH (06:21)
[2020-10-18] MEDS: Dexmedetomidine HCl 400 MCG/100 ML MLS IVC SCH (06:21)
[2020-10-18 07:27] LABS: Basophils % 0.3 %; Eosinophils % 22.1 %; Hematocrit 22.3 % (37.5-50.1); Hemoglobin 7.2 g/dL (12.9-16.9); Immature Granulocytes % 0.7 % (0-4); Immature Platelets 10.9 % (1.1-6.1); Lymphocytes # 1.4 K/mcL (0.6-4.6); Lymphocytes % 15.8 %; Mean Corpuscular HGB Conc 32.3 g/dL (31.6-35.5); Mean Corpuscular Hemoglobin 30.5 pg (28.0-33.3); Mean Corpuscular Volume 94.5 fL (83.0-100.0); Mean Platelet Volume 12.6 fL (9.4-12.4); Monocytes % 11.4 %; Neutrophils # 4.4 K/mcL (1.6-8.9); Red Blood Count 2.36 M/mcL (4.19-5.50); Red Cell Distribution Width 17.9 % (11.5-14.5); Segmented Neutrophils % 49.7 %; White Blood Count 8.8 K/mcL (4.3-11.1)
[2020-10-18 07:36] LABS: Eosinophils # 1.9 K/mcL (0.0-0.6); Platelet Count 83 K/mcL (140-400)
[2020-10-18 07:48] LABS: Calcium 8.1 mg/dL (8.6-10.3); Magnesium 1.9 mg/dL (1.6-2.6); Phosphorous 2.9 mg/dL (2.7-4.5)
[2020-10-18 08:09] LABS: Platelet Estimate Slight Decrease (Normal)
[2020-10-18] MEDS: Chlorhexidine Rinse 15 ML MOUTHWASH MM SCH (08:33)
[2020-10-18] MEDS: Nystatin SUSP 5 ML UD.LIQ PO SCH ×4 (08:34→20:34)
[2020-10-18] MEDS: Aspirin 81 MG TAB.CHEW GTUBE SCH (08:34)
[2020-10-18] MEDS: amLODIPine 5 MG TABLET PO SCH (08:34)
[2020-10-18] MEDS: Budesonide/Formoterol 160/4.5 1 PUFF INH IH SCH ×2 (09:36→21:22)
[2020-10-18] MEDS ORDERED: Acetaminophen 325 MG TABLET PO PRN (11:00)
[2020-10-18] MEDS ORDERED: Artificial Tears SOLN 15 ML BOTTLE BOTH EYES PRN (11:00)
[2020-10-18] MEDS ORDERED: Naloxone 0.4 MG/ML INJ IVP PRN (11:00)
[2020-10-18] MEDS ORDERED: Albuterol 2.5 MG/3 ML NEBULIZER IH PRN (11:00)
[2020-10-18] MEDS ORDERED: *HR* Dextrose 50 % in Water (Vial) 50 ML VIAL IVP PRN (11:00)
[2020-10-18] MEDS ORDERED: Dextrose Gel 15 GM/37.5 ML TUBE PO PRN ×2 (11:00)
[2020-10-18] MEDS: ACYCLOVIR IVPB SCH (18:36)
[2020-10-18] MEDS: WATER IVPB SCH (18:36)
[2020-10-18] MEDS: D5 IVPB SCH (18:36)
[2020-10-18] MEDS: Meropenem 1,000 MG in 0.9 % Sodium Chloride Mini Bag 100 ML IVPB SCH (20:33)
[2020-10-18] MEDS: *HR* OxyCODONE Immed Rel 5 MG TABLET PO PRN (20:33)
[2020-10-19 03:54] LABS: Basophils % 0.4 %; Eosinophils # 2.4 K/mcL (0.0-0.6); Eosinophils % 23.7 %; Hematocrit 25.7 % (37.5-50.1); Hemoglobin 8.1 g/dL (12.9-16.9); Immature Granulocytes % 0.7 % (0-4); Lymphocytes # 1.8 K/mcL (0.6-4.6); Lymphocytes % 17.6 %; Mean Corpuscular HGB Conc 31.5 g/dL (31.6-35.5); Mean Corpuscular Hemoglobin 30.3 pg (28.0-33.3); Mean Corpuscular Volume 96.3 fL (83.0-100.0); Mean Platelet Volume 12.6 fL (9.4-12.4); Monocytes # 1.1 K/mcL (0.0-1.3); Monocytes % 11.1 %; Neutrophils # 4.8 K/mcL (1.6-8.9); Platelet Count 134 K/mcL (140-400); Red Blood Count 2.67 M/mcL (4.19-5.50); Red Cell Distribution Width 17.8 % (11.5-14.5); Segmented Neutrophils % 46.5 %; White Blood Count 10.3 K/mcL (4.3-11.1)
[2020-10-19] MEDS: Ipratropium/Albuterol Neb 3 ML IH SCH ×4 (03:57→22:09)
[2020-10-19 04:13] LABS: Anisocytosis 1+ (Not Present); Platelet Estimate Slight Decrease (Normal); Toxic Granulation Present (Not Present)
[2020-10-19 04:16] LABS: Calcium 8.8 mg/dL (8.6-10.3); Magnesium 2.3 mg/dL (1.6-2.6); Phosphorous 2.9 mg/dL (2.7-4.5); Potassium 3.9 mEq/L (3.5-5.1)
[2020-10-19] MEDS: Pantoprazole 40 MG VIAL IVP SCH (06:23)
[2020-10-19] MEDS: amLODIPine 5 MG TABLET PO SCH (08:16)
[2020-10-19] MEDS: Aspirin 81 MG TAB.CHEW GTUBE SCH (08:16)
[2020-10-19] MEDS: Nystatin SUSP 5 ML UD.LIQ PO SCH ×5 (08:27→21:45)
[2020-10-19] MEDS ORDERED: *HR* Heparin 10,000 UNIT/10 ML VIAL IV PRN (09:21)
[2020-10-19] MEDS ORDERED: 0.9 % Sodium Chloride 250 ML IVC PRN (09:21)
[2020-10-19] MEDS ORDERED: 0.9 % Sodium Chloride 1,000 ML PRIME SCH (09:30)
[2020-10-19] MEDS: Budesonide/Formoterol 160/4.5 1 PUFF INH IH SCH ×2 (10:58→22:09)
[2020-10-19] MEDS ORDERED: *HR* Heparin 5,000 UNIT/ML VIAL ONE (13:34)
[2020-10-19] MEDS ORDERED: *HR* Heparin 10,000 UNIT/10 ML VIAL ONE (17:43)
[2020-10-19] MEDS: ACYCLOVIR IVPB SCH (18:28)
[2020-10-19] MEDS: D5 IVPB SCH (18:28)
[2020-10-19] MEDS: WATER IVPB SCH (18:28)
[2020-10-19] MEDS: Meropenem 1,000 MG in 0.9 % Sodium Chloride Mini Bag 100 ML IVPB SCH (21:39)
[2020-10-20] MEDS: Ipratropium/Albuterol Neb 3 ML IH SCH ×4 (03:12→21:50)
[2020-10-20] MEDS: *HR* OxyCODONE Immed Rel 5 MG TABLET PO PRN (03:29)
[2020-10-20] MEDS: Pantoprazole 40 MG VIAL IVP SCH ×2 (05:09→20:42)
[2020-10-20 06:28] LABS: Basophils % 0.4 %; Eosinophils # 1.7 K/mcL (0.0-0.6); Eosinophils % 15.5 %; Hematocrit 19.3 % (37.5-50.1); Immature Granulocytes % 0.8 % (0-4); Lymphocytes # 2.3 K/mcL (0.6-4.6); Lymphocytes % 21.2 %; Mean Corpuscular HGB Conc 30.6 g/dL (31.6-35.5); Mean Corpuscular Hemoglobin 30.6 pg (28.0-33.3); Mean Platelet Volume 12.4 fL (9.4-12.4); Monocytes % 18.2 %; Neutrophils # 4.7 K/mcL (1.6-8.9); Platelet Count 191 K/mcL (140-400); Red Blood Count 1.93 M/mcL (4.19-5.50); Red Cell Distribution Width 17.4 % (11.5-14.5); Segmented Neutrophils % 43.9 %; White Blood Count 10.7 K/mcL (4.3-11.1)
[2020-10-20 06:37] LABS: Hemoglobin 5.9 g/dL (12.9-16.9)
[2020-10-20 07:22] LABS: Anisocytosis 1+ (Not Present); Hypochromasia Present (Not Present)
[2020-10-20 07:23] LABS: Basophilic Stippling 1+ (Not Present); Platelet Estimate Normal (Normal); Toxic Granulation Present (Not Present)
[2020-10-20] MEDS: Aspirin 81 MG TAB.CHEW GTUBE SCH (07:38)
[2020-10-20] MEDS: Nystatin SUSP 5 ML UD.LIQ PO SCH ×4 (07:38→20:39)
[2020-10-20] MEDS: amLODIPine 5 MG TABLET PO SCH (07:38)
[2020-10-20] MEDS ORDERED: 0.9 % Sodium Chloride 250 ML ONE ×2 (08:57→13:02)
[2020-10-20 09:44] LABS: Calcium 8.2 mg/dL (8.6-10.3); Phosphorous 1.6 mg/dL (2.7-4.5); Potassium 3.4 mEq/L (3.5-5.1)
[2020-10-20] MEDS: Budesonide/Formoterol 160/4.5 1 PUFF INH IH SCH ×2 (10:50→21:51)
[2020-10-20] MEDS ORDERED: Furosemide 40 MG/4 ML VIAL IVP ONE (11:30)
[2020-10-20] MEDS: predniSONE 20 MG TABLET PO SCH (11:38)
[2020-10-20] MEDS ORDERED: Furosemide 80 MG in 0.9 % Sodium Chloride 50 ML IVPB ONE (14:22)
[2020-10-20 16:26] LABS: INR 1.3; Prothrombin Time 15.3 Seconds (9.4-12.1)
[2020-10-20 17:21] LABS: LDH,Pleural Fluid 122 Units/L (No Ref Range); Total Protein,Pleural Fluid < 2.0 g/dL
[2020-10-20 17:42] LABS: Appearance of Pleural Fl Bloody (Clear)
[2020-10-20 17:43] LABS: Volume of Pleural Fluid 11.5 mL
[2020-10-20] MEDS: ACYCLOVIR IVPB SCH (17:54)
[2020-10-20] MEDS: D5 IVPB SCH (17:54)
[2020-10-20] MEDS: WATER IVPB SCH (17:54)
[2020-10-20 19:18] LABS: Hematocrit 29.1 % (37.5-50.1); Mean Corpuscular Hemoglobin 30.4 pg (28.0-33.3); Mean Corpuscular Volume 95.1 fL (83.0-100.0); Mean Platelet Volume 12.1 fL (9.4-12.4); Platelet Count 249 K/mcL (140-400); Red Blood Count 3.06 M/mcL (4.19-5.50); Red Cell Distribution Width 17.2 % (11.5-14.5); White Blood Count 9.1 K/mcL (4.3-11.1)
[2020-10-20 19:20] LABS: Hemoglobin 9.3 g/dL (12.9-16.9)
[2020-10-20] MEDS: Meropenem 1,000 MG in 0.9 % Sodium Chloride Mini Bag 100 ML IVPB SCH (19:46)
[2020-10-20 20:24] LABS: Lactate Dehydrogenase 330 Units/L (140-271)
[2020-10-20] MEDS: *HR* HYDROcodone/Acet 5/325 mg TABLET PO PRN (20:39)
[2020-10-21] MEDS: Ipratropium/Albuterol Neb 3 ML IH SCH ×4 (03:55→22:10)
[2020-10-21 04:18] LABS: Basophils % 0.4 %; Eosinophils # 0.1 K/mcL (0.0-0.6); Eosinophils % 0.7 %; Hematocrit 28.1 % (37.5-50.1); Hemoglobin 9.2 g/dL (12.9-16.9); Immature Granulocytes % 1.3 % (0-4); Lymphocytes # 1.7 K/mcL (0.6-4.6); Lymphocytes % 18.8 %; Mean Corpuscular HGB Conc 32.7 g/dL (31.6-35.5); Mean Corpuscular Hemoglobin 31.1 pg (28.0-33.3); Mean Corpuscular Volume 94.9 fL (83.0-100.0); Mean Platelet Volume 11.5 fL (9.4-12.4); Monocytes # 1.2 K/mcL (0.0-1.3); Monocytes % 13.4 %; Neutrophils # 5.9 K/mcL (1.6-8.9); Platelet Count 258 K/mcL (140-400); Red Blood Count 2.96 M/mcL (4.19-5.50); Red Cell Distribution Width 16.8 % (11.5-14.5); Segmented Neutrophils % 65.4 %; White Blood Count 9.1 K/mcL (4.3-11.1)
[2020-10-21 04:37] LABS: Calcium 8.3 mg/dL (8.6-10.3); Magnesium 2.2 mg/dL (1.6-2.6); Phosphorous 2.9 mg/dL (2.7-4.5)
[2020-10-21] MEDS ORDERED: 0.9 % Sodium Chloride 250 ML IVC PRN (07:05)
[2020-10-21] MEDS: Aspirin 81 MG TAB.CHEW GTUBE SCH (08:13)
[2020-10-21] MEDS: predniSONE 20 MG TABLET PO SCH (08:13)
[2020-10-21] MEDS: Pantoprazole 40 MG VIAL IVP SCH ×2 (08:14→19:46)
[2020-10-21] MEDS: Nystatin SUSP 5 ML UD.LIQ PO SCH ×4 (08:14→19:49)
[2020-10-21] MEDS: amLODIPine 5 MG TABLET PO SCH (08:14)
[2020-10-21] MEDS: Budesonide/Formoterol 160/4.5 1 PUFF INH IH SCH ×2 (10:25→22:11)
[2020-10-21] MEDS: WATER IVPB SCH (15:51)
[2020-10-21] MEDS: ACYCLOVIR IVPB SCH (15:51)
[2020-10-21] MEDS: D5 IVPB SCH (15:51)
[2020-10-21] MEDS: *HR* HYDROcodone/Acet 5/325 mg TABLET PO PRN (19:48)
[2020-10-21] MEDS: Meropenem 1,000 MG in 0.9 % Sodium Chloride Mini Bag 100 ML IVPB SCH (19:48)
[2020-10-22] MEDS ORDERED: Haloperidol Lactate 5 MG/ML VIAL IVP ONE (03:30)
[2020-10-22] MEDS: Ipratropium/Albuterol Neb 3 ML IH SCH ×4 (03:59→21:51)
[2020-10-22 04:12] LABS: Basophils % 0.2 %; Eosinophils # 0.1 K/mcL (0.0-0.6); Eosinophils % 1.3 %; Hematocrit 26.7 % (37.5-50.1); Hemoglobin 8.7 g/dL (12.9-16.9); Immature Granulocytes % 2.2 % (0-4); Lymphocytes # 1.8 K/mcL (0.6-4.6); Lymphocytes % 20.4 %; Mean Corpuscular HGB Conc 32.6 g/dL (31.6-35.5); Mean Platelet Volume 11.2 fL (9.4-12.4); Monocytes # 1.5 K/mcL (0.0-1.3); Monocytes % 16.9 %; Neutrophils # 5.1 K/mcL (1.6-8.9); Platelet Count 332 K/mcL (140-400); Red Blood Count 2.81 M/mcL (4.19-5.50); Red Cell Distribution Width 16.3 % (11.5-14.5); White Blood Count 8.6 K/mcL (4.3-11.1)
[2020-10-22 04:31] LABS: Calcium 8.6 mg/dL (8.6-10.3); Magnesium 1.9 mg/dL (1.6-2.6); Phosphorous 3.1 mg/dL (2.7-4.5)
[2020-10-22] MEDS: Nystatin SUSP 5 ML UD.LIQ PO SCH ×4 (09:11→20:14)
[2020-10-22] MEDS: amLODIPine 5 MG TABLET PO SCH (09:11)
[2020-10-22] MEDS: Aspirin 81 MG TAB.CHEW GTUBE SCH (09:11)
[2020-10-22] MEDS: predniSONE 20 MG TABLET PO SCH (09:11)
[2020-10-22] MEDS: Pantoprazole 40 MG VIAL IVP SCH ×2 (09:12→20:45)
[2020-10-22] MEDS: Budesonide/Formoterol 160/4.5 1 PUFF INH IH SCH ×2 (10:49→21:51)
[2020-10-22] MEDS: D5 IVPB SCH (17:12)
[2020-10-22] MEDS: WATER IVPB SCH (17:12)
[2020-10-22] MEDS: ACYCLOVIR IVPB SCH (17:12)
[2020-10-22] MEDS: Meropenem 1,000 MG in 0.9 % Sodium Chloride Mini Bag 100 ML IVPB SCH (20:14)
[2020-10-23] MEDS: Ipratropium/Albuterol Neb 3 ML IH SCH ×3 (04:02→15:30)
[2020-10-23] MEDS: Pantoprazole 40 MG VIAL IVP SCH (08:24)
[2020-10-23] MEDS: amLODIPine 5 MG TABLET PO SCH (08:25)
[2020-10-23] MEDS: Nystatin SUSP 5 ML UD.LIQ PO SCH ×3 (08:27→16:46)
[2020-10-23] MEDS ORDERED: Aspirin 81 MG TAB.CHEW PO SCH (09:00)
[2020-10-23] MEDS ORDERED: predniSONE 20 MG TABLET PO SCH (09:00)
[2020-10-23 09:40] LABS: Calcium 8.5 mg/dL (8.6-10.3); Potassium 3.7 mEq/L (3.5-5.1)
[2020-10-23] MEDS: Budesonide/Formoterol 160/4.5 1 PUFF INH IH SCH (10:51)
[2020-10-23] MEDS ORDERED: D5% in Water 1,000 ML IVC PRN (11:10)
[2020-10-23 15:52] VITALS: BP 126/63
[2020-10-23] MEDS ORDERED: ACYCLOVIR IVPB SCH (16:00)
[2020-10-23] MEDS ORDERED: D5 IVPB SCH (16:00)
[2020-10-23] MEDS ORDERED: WATER IVPB SCH (16:00)
[2020-10-23] MEDS ORDERED: Meropenem 1,000 MG in 0.9 % Sodium Chloride Mini Bag 100 ML IVPB SCH (17:00)
== END 2020-10-23 17:55 | DRG 870 ==
LOC: ICNU → SUATTDRO 16:49 → 3ANU 10-07 19:06 → 2NNU 10-09 11:23 → ICNU 10-12 09:34 → 2NNU 10-18 13:05 → 2ANU 10-22 22:44
PROVIDERS: ADMIT Family Medicine; ATTEND Internal Medicine

== ENCOUNTER 2021-02-16 07:15 | Inpatient (IN) ==
[2021-02-16] MEDS ORDERED: *HR* HYDROcodone/Acet 5/325 mg TABLET PO PRN ×2 (10:16)
[2021-02-16] MEDS ORDERED: *HR* OxyCODONE Immed Rel 5 MG TABLET PO PRN (10:16)
[2021-02-16] MEDS ORDERED: Naloxone 0.4 MG/ML INJ IVP PRN (10:16)
[2021-02-16] MEDS ORDERED: Ipratropium/Albuterol Neb 3 ML IH PRN (10:22)
[2021-02-16] MEDS ORDERED: D5% in Water 1,000 ML IVC PRN (10:22)
[2021-02-16] MEDS ORDERED: Dextrose Gel 15 GM/37.5 ML TUBE PO PRN ×2 (10:22)
[2021-02-16] MEDS ORDERED: Furosemide 20 MG/2 ML VIAL IVP SCH (10:30)
[2021-02-16] MEDS: Piperacillin/Tazobactam 3.375 GM in 0.9 % Sodium Chloride Mini Bag 100 ML IVPB SCH ×3 (11:15→23:07)
[2021-02-16] MEDS ORDERED: D10% in Water 500 ML IVC SCH (11:15)
[2021-02-16] MEDS ORDERED: Acetaminophen 325 MG TABLET PO PRN (11:58)
[2021-02-16] MEDS ORDERED: Nitroglycerin 0.4 MG TAB.SUBL SL PRN (11:58)
[2021-02-16] MEDS ORDERED: *HR* Heparin 5,000 UNIT/ML VIAL IVP PRN ×2 (13:10)
[2021-02-16] MEDS ORDERED: *HR* Heparin 5,000 UNIT/ML VIAL IVP ONE (13:10)
[2021-02-16] MEDS: Heparin 25,000UNIT/250ML 1/2NS 25,000 UNIT/250 ML IV.SOLN IVC SCH (15:14)
[2021-02-16 15:46] LABS: Hematocrit 38.1 % (37.5-50.1); Hemoglobin 11.7 g/dL (12.9-16.9); Mean Corpuscular HGB Conc 30.7 g/dL (31.6-35.5); Mean Corpuscular Hemoglobin 27.9 pg (28.0-33.3); Mean Corpuscular Volume 90.9 fL (83.0-100.0); Mean Platelet Volume 10.6 fL (9.4-12.4); Platelet Count 180 K/mcL (140-400); Red Blood Count 4.19 M/mcL (4.19-5.50); Red Cell Distribution Width 16.1 % (11.5-14.5); White Blood Count 23.9 K/mcL (4.3-11.1)
[2021-02-16 15:48] LABS: Heparin anti-factor XA UFH < 0.04 IU/mL (0.30-0.70); Prothrombin Time 22.6 Seconds (9.4-12.1)
[2021-02-16 17:30] LABS: RBC,Pleural Fluid < 2000 RBC/mcL
[2021-02-16 17:41] LABS: Glucose,Pleural Fluid 112 mg/dL (No Ref Range); LDH,Pleural Fluid 72 Units/L (No Ref Range); Total Protein,Pleural Fluid < 2.0 g/dL
[2021-02-16] MEDS ORDERED: *HR* Heparin 5,000 UNIT/ML VIAL SQ SCH (18:00)
[2021-02-16 18:26] LABS: Appearance of Pleural Fl Cloudy (Clear); Basophils,Pleural Fluid 0 %; Monocytes,Pleural Fluid 0 %
[2021-02-16] MEDS: Furosemide 20 MG/2 ML VIAL IVP SCH (20:03)
[2021-02-16] MEDS: Budesonide/Formoterol 160/4.5 1 PUFF INH IH SCH (20:09)
[2021-02-16 21:53] LABS: Lactate Dehydrogenase 169 Units/L (140-271); Total Protein 5.8 g/dL (6.4-8.9)
[2021-02-16] MEDS: Ondansetron 4 MG/2 ML VIAL IVP PRN (23:09)
[2021-02-17 02:02] LABS: Troponin I 0.19 ng/mL (< 0.04)
[2021-02-17 05:30] LABS: Basophils # 0.1 K/mcL (0.0-0.2); Basophils % 0.3 %; Hematocrit 36.7 % (37.5-50.1); Hemoglobin 11.1 g/dL (12.9-16.9); Immature Granulocytes % 1.7 % (0-4); Lymphocytes # 1.1 K/mcL (0.6-4.6); Lymphocytes % 6.4 %; Mean Corpuscular HGB Conc 30.2 g/dL (31.6-35.5); Mean Corpuscular Hemoglobin 27.3 pg (28.0-33.3); Mean Corpuscular Volume 90.4 fL (83.0-100.0); Mean Platelet Volume 11.4 fL (9.4-12.4); Monocytes # 0.6 K/mcL (0.0-1.3); Monocytes % 3.2 %; Neutrophils # 15.3 K/mcL (1.6-8.9); Platelet Count 178 K/mcL (140-400); Red Blood Count 4.06 M/mcL (4.19-5.50); Red Cell Distribution Width 16.2 % (11.5-14.5); Segmented Neutrophils % 88.4 %; White Blood Count 17.3 K/mcL (4.3-11.1)
[2021-02-17 05:50] LABS: Calcium 7.7 mg/dL (8.6-10.3); Magnesium 1.6 mg/dL (1.6-2.6); Potassium 3.7 mEq/L (3.5-5.1)
[2021-02-17] MEDS: Budesonide/Formoterol 160/4.5 1 PUFF INH IH SCH ×2 (08:15→22:30)
[2021-02-17] MEDS: Aspirin Enteric Coated 81 MG Tablet PO SCH (08:51)
[2021-02-17] MEDS: Furosemide 20 MG/2 ML VIAL IVP SCH ×2 (08:51→20:45)
[2021-02-17] MEDS: predniSONE 20 MG TABLET PO SCH (08:55)
[2021-02-17] MEDS: Piperacillin/Tazobactam 3.375 GM in 0.9 % Sodium Chloride Mini Bag 100 ML IVPB SCH ×2 (14:03→17:27)
[2021-02-17 15:25] LABS: RBC,Pleural Fluid < 2000 RBC/mcL
[2021-02-17 15:29] LABS: Appearance of Pleural Fl Clear (Clear)
[2021-02-17 15:41] LABS: Glucose,Pleural Fluid 100 mg/dL (No Ref Range); LDH,Pleural Fluid 64 Units/L (No Ref Range); Total Protein,Pleural Fluid < 2.0 g/dL
[2021-02-17] MEDS: Heparin 25,000UNIT/250ML 1/2NS 25,000 UNIT/250 ML IV.SOLN IVC SCH (16:54)
[2021-02-17 17:01] LABS: Basophils,Pleural Fluid 0 %; Eosinophils,Pleural Fluid 0 %
[2021-02-17] MEDS: Ondansetron 4 MG/2 ML VIAL IVP PRN (20:43)
[2021-02-18] MEDS: Piperacillin/Tazobactam 3.375 GM in 0.9 % Sodium Chloride Mini Bag 100 ML IVPB SCH ×4 (01:31→23:44)
[2021-02-18 06:55] LABS: Hematocrit 39.1 % (37.5-50.1); Hemoglobin 11.6 g/dL (12.9-16.9); Mean Corpuscular HGB Conc 29.7 g/dL (31.6-35.5); Mean Corpuscular Volume 94.2 fL (83.0-100.0); Mean Platelet Volume 11.9 fL (9.4-12.4); Platelet Count 197 K/mcL (140-400); Red Blood Count 4.15 M/mcL (4.19-5.50); Red Cell Distribution Width 16.2 % (11.5-14.5); White Blood Count 22.9 K/mcL (4.3-11.1)
[2021-02-18 07:12] LABS: Potassium 4.1 mEq/L (3.5-5.1)
[2021-02-18] MEDS: Aspirin Enteric Coated 81 MG Tablet PO SCH (08:25)
[2021-02-18] MEDS: predniSONE 20 MG TABLET PO SCH (08:26)
[2021-02-18] MEDS: Furosemide 20 MG/2 ML VIAL IVP SCH (08:26)
[2021-02-18] MEDS ORDERED: Vancomycin 1,250 MG/262.5 ML IV.SOLN IVPB SCH (09:00)
[2021-02-18] MEDS: Budesonide/Formoterol 160/4.5 1 PUFF INH IH SCH ×2 (10:42→20:20)
[2021-02-18 16:25] LABS: Fluid Source for Cholesterol PLEURAL FLUID; Fluid Source for Triglycerides PLEURAL FLUID
[2021-02-18] MEDS ORDERED: Furosemide 40 MG TABLET PO SCH (17:00)
[2021-02-18] MEDS: *HR* Heparin 5,000 UNIT/ML VIAL SQ SCH (17:19)
[2021-02-18] MEDS: Ondansetron 4 MG/2 ML VIAL IVP PRN (19:19)
[2021-02-18] MEDS: *HR* OxyCODONE Immed Rel 5 MG TABLET PO PRN (19:25)
[2021-02-19] MEDS: *HR* Heparin 5,000 UNIT/ML VIAL SQ SCH ×2 (05:20→16:33)
[2021-02-19 05:29] LABS: Hematocrit 38.5 % (37.5-50.1); Hemoglobin 11.4 g/dL (12.9-16.9); Mean Corpuscular HGB Conc 29.6 g/dL (31.6-35.5); Mean Corpuscular Hemoglobin 27.3 pg (28.0-33.3); Mean Corpuscular Volume 92.3 fL (83.0-100.0); Mean Platelet Volume 12.1 fL (9.4-12.4); Platelet Count 196 K/mcL (140-400); Red Blood Count 4.17 M/mcL (4.19-5.50); Red Cell Distribution Width 16.4 % (11.5-14.5); White Blood Count 16.6 K/mcL (4.3-11.1)
[2021-02-19 05:50] LABS: Calcium 8.2 mg/dL (8.6-10.3)
[2021-02-19] MEDS: Budesonide/Formoterol 160/4.5 1 PUFF INH IH SCH ×2 (07:28→20:10)
[2021-02-19] MEDS: *HR* Dextrose 50 % in Water (Vial) 50 ML VIAL IVP PRN (08:29)
[2021-02-19] MEDS: Piperacillin/Tazobactam 3.375 GM in 0.9 % Sodium Chloride Mini Bag 100 ML IVPB SCH ×3 (08:29→23:25)
[2021-02-19] MEDS: amLODIPine 5 MG TABLET PO SCH (08:30)
[2021-02-19] MEDS: predniSONE 20 MG TABLET PO SCH (08:30)
[2021-02-19] MEDS: Aspirin Enteric Coated 81 MG Tablet PO SCH (08:30)
[2021-02-19] MEDS: *HR* OxyCODONE Immed Rel 5 MG TABLET PO PRN (16:33)
[2021-02-19 18:25] LABS: Creatinine,Urine 92 mg/dL; Sodium, Urine < 10.0 mEq/L
[2021-02-19 18:50] LABS: Bilirubin,Urine Negative (Negative); Blood,Urine Moderate (Negative); Clarity,Urine Clear (Clear); Color,Urine Yellow (Yellow); Glucose,Urine (UA) Normal (Normal); Ketones,Urine Trace mg/dL (Negative); Leukocyte Esterase,Urine Negative (Negative); Nitrite,Urine Negative (Negative); Protein,Urine 50 mg/dL (Neg-Trace); RBC,Urine 50-100 per hpf (0-3); Specific Gravity,Urine 1.027 (1.010-1.025); Urobilinogen,Urine Normal (Normal)
[2021-02-19 18:51] LABS: Cholesterol,Body Fluid 16 mg/dL; Triglycerides,Body Fluid 17 mg/dL
[2021-02-19 21:16] LABS: Mixed Venous Blood pCO2 59 mmHg (44-46); Mixed Venous Blood pH 7.28 pH Units (7.34-7.36); Mixed Venous Blood pO2 42 mmHg (35-45)
[2021-02-19 23:38] LABS: Amphetamine Screen,Urine Positive ng/mL (Cutoff=1000); Barbiturate Screen,Urine Negative ng/mL (Cutoff=200); Benzodiazepines Screen,Urine Negative ng/mL (Cutoff=200); Cannabinoid Screen,Urine Negative ng/mL (Cutoff = 50); Cocaine Screen,Urine Negative ng/mL (Cutoff= 300); Opiate Screen,Urine Negative ng/mL (Cutoff=300); Phencyclidine Screen,Urine Negative ng/mL (Cutoff=25)
[2021-02-19 23:46] LABS: Fluid Source for Cholesterol PLEURAL FLUID
[2021-02-20] MEDS ORDERED: *HR* LORazepam 2 MG/ML VIAL IVP ONE (00:23)
[2021-02-20 02:43] LABS: Mixed Venous Blood pCO2 65 mmHg (44-46); Mixed Venous Blood pH 7.22 pH Units (7.34-7.36); Mixed Venous Blood pO2 40 mmHg (35-45)
[2021-02-20 03:28] LABS: Hematocrit 36.4 % (37.5-50.1); Hemoglobin 11.2 g/dL (12.9-16.9); Mean Corpuscular HGB Conc 30.8 g/dL (31.6-35.5); Mean Corpuscular Hemoglobin 28.4 pg (28.0-33.3); Mean Corpuscular Volume 92.4 fL (83.0-100.0); Mean Platelet Volume 12.6 fL (9.4-12.4); Platelet Count 181 K/mcL (140-400); Red Blood Count 3.94 M/mcL (4.19-5.50); Red Cell Distribution Width 16.1 % (11.5-14.5); White Blood Count 17.1 K/mcL (4.3-11.1)
[2021-02-20 03:35] LABS: Potassium 5.2 mEq/L (3.5-5.1)
[2021-02-20] MEDS: *HR* Heparin 5,000 UNIT/ML VIAL SQ SCH ×2 (06:59→17:03)
[2021-02-20] MEDS: Piperacillin/Tazobactam 3.375 GM in 0.9 % Sodium Chloride Mini Bag 100 ML IVPB SCH ×3 (08:26→23:44)
[2021-02-20 08:47] LABS: ABG Base Excess -1 mEq/L (-2 to 3); ABG HCO3 27 mEq/L (21-27); ABG Oxygen Saturation 58 % (95-98); ABG PCO2 61 mmHg (35-45); ABG PH 7.26 pH Units (7.32-7.45); ABG PO2 35 mmHg (85-104); ABG TCO2 29 mEq/L (20-26); Blood Gas Modality BiLevel; Blood Gas VT 500 cc
[2021-02-20] MEDS ORDERED: predniSONE 10 MG TABLET PO SCH (09:00)
[2021-02-20] MEDS ORDERED: MethylPREDNISolone 40 MG/ML VIAL IVP SCH (09:01)
[2021-02-20] MEDS ORDERED: Ipratropium/Albuterol Neb 3 ML IH PRN (09:18)
[2021-02-20] MEDS: Aspirin Enteric Coated 81 MG Tablet PO SCH (09:29)
[2021-02-20] MEDS: amLODIPine 5 MG TABLET PO SCH (09:30)
[2021-02-20] MEDS ORDERED: Albumin 25% 25gram/100mL 25 GM/100 ML IV.SOLN IVPB ONE (09:35)
[2021-02-20] MEDS ORDERED: Furosemide 40 MG/4 ML VIAL IVP ONE (10:15)
[2021-02-20 10:19] LABS: Cholesterol,Body Fluid 18 mg/dL
[2021-02-20] MEDS: Budesonide/Formoterol 160/4.5 1 PUFF INH IH SCH ×2 (10:28→22:09)
[2021-02-20 11:48] LABS: Hepatitis C Virus Antibody Nonreactive (Nonreactive)
[2021-02-20 11:49] LABS: Hepatitis B Core IgM Reactive (Nonreactive)
[2021-02-20 11:50] LABS: Hepatitis A Antibody IgM Nonreactive (Nonreactive)
[2021-02-20] MEDS ORDERED: Ipratropium/Albuterol Neb 3 ML IH SCH (12:00)
[2021-02-20 12:33] LABS: Hepatitis B Surface Antigen Reactive (Nonreactive)
[2021-02-20 13:29] LABS: Albumin/Globulin Ratio 0.9 (1.1-2.2); Bilirubin,Direct 0.4 mg/dL (0.0-0.2); Bilirubin,Indirect 0.4 mg/dL (0.0-1.0); Bilirubin,Total 0.8 mg/dL (0.3-1.0); Globulin 3.4 g/dL (2.4-3.5); Total Protein 6.4 g/dL (6.4-8.9)
[2021-02-20] MEDS ORDERED: Perflutren Lipid Microsphere 1.3 ML in 0.9 % Sodium Chloride 8.7 ML IVP PRN (14:51)
[2021-02-20] MEDS ORDERED: Albumin 25% 25gram/100mL 25 GM/100 ML IV.SOLN IVPB SCH (16:00)
[2021-02-20] MEDS: *HR* Dextrose 50 % in Water (Vial) 50 ML VIAL IVP PRN (23:28)
[2021-02-21 06:00] LABS: Red Cell Distribution Width 16.2 % (11.5-14.5)
[2021-02-21 06:02] LABS: Basophils # 0.1 K/mcL (0.0-0.2); Basophils % 0.6 %; Eosinophils % 0.2 %; Hematocrit 32.5 % (37.5-50.1); Hemoglobin 9.6 g/dL (12.9-16.9); Immature Granulocytes % 3.4 % (0-4); Lymphocytes # 1.5 K/mcL (0.6-4.6); Lymphocytes % 12.8 %; Mean Corpuscular HGB Conc 29.5 g/dL (31.6-35.5); Mean Corpuscular Hemoglobin 27.4 pg (28.0-33.3); Mean Corpuscular Volume 92.9 fL (83.0-100.0); Mean Platelet Volume 11.4 fL (9.4-12.4); Monocytes # 1.1 K/mcL (0.0-1.3); Nucleated Red Blood Cells 0.3 /100 WBC (0); Platelet Count 143 K/mcL (140-400); White Blood Count 11.3 K/mcL (4.3-11.1)
[2021-02-21 06:03] LABS: Neutrophils # 8.3 K/mcL (1.6-8.9)
[2021-02-21] MEDS: *HR* Heparin 5,000 UNIT/ML VIAL SQ SCH ×3 (06:14→16:52)
[2021-02-21 06:21] LABS: Albumin 3.4 g/dL (3.5-5.7); Albumin/Globulin Ratio 1.3 (1.1-2.2); Bilirubin,Total 0.8 mg/dL (0.3-1.0); Calcium 8.1 mg/dL (8.6-10.3); Globulin 2.7 g/dL (2.4-3.5); Total Protein 6.1 g/dL (6.4-8.9)
[2021-02-21] MEDS: Piperacillin/Tazobactam 3.375 GM in 0.9 % Sodium Chloride Mini Bag 100 ML IVPB SCH ×2 (08:22→16:45)
[2021-02-21] MEDS: Aspirin Enteric Coated 81 MG Tablet PO SCH (08:25)
[2021-02-21] MEDS: amLODIPine 5 MG TABLET PO SCH (08:25)
[2021-02-21 08:26] LABS: VBG HCO3 31 mEq/L (21-27); VBG PCO2 73 mmHg (41-51); VBG PH 7.23 pH Units (7.32-7.42); VBG PO2 37 mmHg (25-50)
[2021-02-21 09:43] LABS: Hemoglobin 9.8 g/dL (12.9-16.9)
[2021-02-21] MEDS: Budesonide/Formoterol 160/4.5 1 PUFF INH IH SCH ×2 (10:50→20:25)
[2021-02-21 11:04] LABS: ABG Base Excess -1 mEq/L (-2 to 3); ABG HCO3 27 mEq/L (21-27); ABG Oxygen Saturation 70 % (95-98); ABG PCO2 63 mmHg (35-45); ABG PH 7.25 pH Units (7.32-7.45); ABG PO2 44 mmHg (85-104); ABG TCO2 29 mEq/L (20-26)
[2021-02-21] MEDS: *HR* Dextrose 50 % in Water (Vial) 50 ML VIAL IVP PRN (11:12)
[2021-02-22] MEDS: Piperacillin/Tazobactam 3.375 GM in 0.9 % Sodium Chloride Mini Bag 100 ML IVPB SCH ×3 (00:12→14:34)
[2021-02-22 02:27] LABS: Basophils % 0.3 %; Red Blood Count 2.76 M/mcL (4.19-5.50)
[2021-02-22 02:29] LABS: Eosinophils # 0.1 K/mcL (0.0-0.6); Eosinophils % 1.3 %; Hematocrit 25.7 % (37.5-50.1); Hemoglobin 7.6 g/dL (12.9-16.9); Immature Granulocytes % 3.4 % (0-4); Immature Platelets 7.6 % (1.1-6.1); Lymphocytes # 1.5 K/mcL (0.6-4.6); Mean Corpuscular HGB Conc 29.6 g/dL (31.6-35.5); Mean Corpuscular Hemoglobin 27.5 pg (28.0-33.3); Mean Corpuscular Volume 93.1 fL (83.0-100.0); Mean Platelet Volume 11.6 fL (9.4-12.4); Monocytes % 10.7 %; Neutrophils # 6.3 K/mcL (1.6-8.9); Nucleated Red Blood Cells 0.7 /100 WBC (0); Platelet Count 135 K/mcL (140-400); Segmented Neutrophils % 68.3 %; White Blood Count 9.2 K/mcL (4.3-11.1)
[2021-02-22 02:45] LABS: Albumin 2.9 g/dL (3.5-5.7); Albumin/Globulin Ratio 1.3 (1.1-2.2); Bilirubin,Total 0.6 mg/dL (0.3-1.0); Calcium 7.9 mg/dL (8.6-10.3); Globulin 2.3 g/dL (2.4-3.5); Potassium 3.9 mEq/L (3.5-5.1); Total Protein 5.2 g/dL (6.4-8.9)
[2021-02-22] MEDS: *HR* Heparin 5,000 UNIT/ML VIAL SQ SCH (06:07)
[2021-02-22] MEDS: amLODIPine 5 MG TABLET PO SCH (07:23)
[2021-02-22] MEDS: Metoprolol XL (24 HR) Succ 25 MG TAB.ER.24H PO SCH (07:23)
[2021-02-22 07:58] LABS: Hematocrit 26.9 % (37.5-50.1); Hemoglobin 7.9 g/dL (12.9-16.9)
[2021-02-22] MEDS: Albumin 25% 25gram/100mL 25 GM/100 ML IV.SOLN IVPB SCH ×2 (10:20→17:16)
[2021-02-22] MEDS: Budesonide/Formoterol 160/4.5 1 PUFF INH IH SCH ×2 (10:33→21:30)
[2021-02-22 13:06] LABS: Hematocrit 25.8 % (37.5-50.1); Hemoglobin 7.5 g/dL (12.9-16.9)
[2021-02-22] MEDS ORDERED: SODIUM CHLORIDE/NAHCO3/KCL/PEG 4,000 ML SOLN.RECON PO ONE (17:00)
[2021-02-22] MEDS: Pantoprazole 40 MG VIAL IVP SCH (17:16)
[2021-02-22 21:38] LABS: Hematocrit 24.4 % (37.5-50.1)
[2021-02-22 21:46] LABS: Hemoglobin 7.2 g/dL (12.9-16.9)
[2021-02-23] MEDS: Albumin 25% 25gram/100mL 25 GM/100 ML IV.SOLN IVPB SCH (02:35)
[2021-02-23 02:39] LABS: Basophils % 0.4 %; Eosinophils # 0.3 K/mcL (0.0-0.6); Eosinophils % 3.3 %; Hematocrit 25.1 % (37.5-50.1); Hemoglobin 7.4 g/dL (12.9-16.9); Immature Granulocytes % 4.8 % (0-4); Lymphocytes # 1.4 K/mcL (0.6-4.6); Mean Corpuscular HGB Conc 29.5 g/dL (31.6-35.5); Mean Corpuscular Hemoglobin 27.7 pg (28.0-33.3); Mean Platelet Volume 11.1 fL (9.4-12.4); Monocytes # 0.8 K/mcL (0.0-1.3); Monocytes % 9.2 %; Neutrophils # 5.4 K/mcL (1.6-8.9); Nucleated Red Blood Cells 0.4 /100 WBC (0); Platelet Count 134 K/mcL (140-400); Red Blood Count 2.67 M/mcL (4.19-5.50); Red Cell Distribution Width 16.3 % (11.5-14.5); Segmented Neutrophils % 65.3 %; White Blood Count 8.3 K/mcL (4.3-11.1)
[2021-02-23 03:02] LABS: Albumin 3.5 g/dL (3.5-5.7); Albumin/Globulin Ratio 1.4 (1.1-2.2); Bilirubin,Total 0.7 mg/dL (0.3-1.0); Calcium 8.4 mg/dL (8.6-10.3); Globulin 2.5 g/dL (2.4-3.5); Potassium 3.9 mEq/L (3.5-5.1)
[2021-02-23] MEDS: Pantoprazole 40 MG VIAL IVP SCH ×2 (05:57→17:06)
[2021-02-23] MEDS: Budesonide/Formoterol 160/4.5 1 PUFF INH IH SCH ×2 (08:01→20:30)
[2021-02-23] MEDS: amLODIPine 5 MG TABLET PO SCH (08:08)
[2021-02-23] MEDS: Metoprolol XL (24 HR) Succ 25 MG TAB.ER.24H PO SCH (08:09)
[2021-02-23 14:22] LABS: Hematocrit 25.6 % (37.5-50.1); Hemoglobin 7.5 g/dL (12.9-16.9)
[2021-02-23] MEDS ORDERED: SODIUM CHLORIDE/NAHCO3/KCL/PEG 4,000 ML SOLN.RECON PO ONE (17:00)
[2021-02-24 01:35] LABS: Hematocrit 21.1 % (37.5-50.1); Hemoglobin 6.2 g/dL (12.9-16.9); Mean Corpuscular HGB Conc 29.4 g/dL (31.6-35.5); Mean Corpuscular Hemoglobin 27.9 pg (28.0-33.3); Mean Platelet Volume 10.6 fL (9.4-12.4); Platelet Count 135 K/mcL (140-400); Red Blood Count 2.22 M/mcL (4.19-5.50); Red Cell Distribution Width 16.2 % (11.5-14.5); White Blood Count 8.1 K/mcL (4.3-11.1)
[2021-02-24 01:54] LABS: BUN/Creatinine Ratio 23 (6-26); Blood Urea Nitrogen 26 mg/dL (8-23); Calcium 8.2 mg/dL (8.6-10.3); Carbon Dioxide 33 mEq/L (23-29); Chloride 104 mEq/L (98-107); Glucose 85 mg/dL (70-105); Osmolality,Calculated 300 (280-300); Potassium 4.1 mEq/L (3.5-5.1); Sodium 143 mEq/L (136-145); eGFR For African Americans > 60 (> 60); eGFR For Non-African Americans > 60 (> 60)
[2021-02-24] MEDS ORDERED: 0.9 % Sodium Chloride 250 ML IVC SCH (02:30)
[2021-02-24] MEDS: Pantoprazole 40 MG VIAL IVP SCH ×2 (06:13→17:38)
[2021-02-24] MEDS: Budesonide/Formoterol 160/4.5 1 PUFF INH IH SCH ×2 (08:00→21:16)
[2021-02-24] MEDS: Metoprolol XL (24 HR) Succ 25 MG TAB.ER.24H PO SCH (08:46)
[2021-02-24] MEDS: amLODIPine 5 MG TABLET PO SCH (08:46)
[2021-02-24] MEDS ORDERED: Ondansetron 4 MG/2 ML VIAL IVP PRN (09:26)
[2021-02-24] MEDS ORDERED: *HR* FentaNYL (PF) 100 MCG/2 ML VIAL IVP PRN (09:26)
[2021-02-24] MEDS ORDERED: Furosemide 40 MG/4 ML VIAL IVP ONE ×2 (11:11→15:36)
[2021-02-24] MEDS ORDERED: Lidocaine -MPF 2% 5 ML VIAL ONE (12:12)
[2021-02-24] MEDS ORDERED: EPINEPHrine 1 MG/ML VIAL IM ONE (12:33)
[2021-02-24] MEDS ORDERED: *HR* Metoprolol 5 MG/5 ML VIAL IVP ONE (12:39)
[2021-02-24 16:42] LABS: Hematocrit 21.1 % (37.5-50.1); Hemoglobin 6.3 g/dL (12.9-16.9)
[2021-02-24] MEDS ORDERED: 0.9 % Sodium Chloride 250 ML ONE (17:05)
[2021-02-24 18:34] LABS: Hematocrit 23.5 % (37.5-50.1); Hemoglobin 7.1 g/dL (12.9-16.9)
[2021-02-25] MEDS: Budesonide/Formoterol 160/4.5 1 PUFF INH IH SCH ×2 (07:29→19:58)
[2021-02-25] MEDS: Pantoprazole 40 MG VIAL IVP SCH ×2 (07:51→17:24)
[2021-02-25] MEDS: amLODIPine 5 MG TABLET PO SCH (09:18)
[2021-02-25] MEDS: Metoprolol XL (24 HR) Succ 25 MG TAB.ER.24H PO SCH (09:18)
[2021-02-25 09:52] LABS: Hematocrit 25.9 % (37.5-50.1); Hemoglobin 7.8 g/dL (12.9-16.9); Mean Corpuscular HGB Conc 30.1 g/dL (31.6-35.5); Mean Corpuscular Hemoglobin 27.8 pg (28.0-33.3); Mean Corpuscular Volume 92.2 fL (83.0-100.0); Mean Platelet Volume 10.9 fL (9.4-12.4); Platelet Count 140 K/mcL (140-400); Red Blood Count 2.81 M/mcL (4.19-5.50); Red Cell Distribution Width 17.5 % (11.5-14.5); White Blood Count 8.5 K/mcL (4.3-11.1)
[2021-02-25 10:14] LABS: BUN/Creatinine Ratio 21 (6-26); Blood Urea Nitrogen 19 mg/dL (8-23); Calcium 8.4 mg/dL (8.6-10.3); Carbon Dioxide 33 mEq/L (23-29); Chloride 100 mEq/L (98-107); Glucose 57 mg/dL (70-105); Osmolality,Calculated 294 (280-300); Sodium 142 mEq/L (136-145); eGFR For African Americans > 60 (> 60); eGFR For Non-African Americans > 60 (> 60)
[2021-02-25] MEDS ORDERED: Furosemide 40 MG in 0.9 % Sodium Chloride 50 ML IV ONE (10:43)
[2021-02-25] MEDS: *HR* OxyCODONE Immed Rel 5 MG TABLET PO PRN (22:42)
[2021-02-26 03:39] LABS: Hemoglobin 8.1 g/dL (12.9-16.9); Mean Corpuscular Hemoglobin 27.8 pg (28.0-33.3); Mean Corpuscular Volume 92.8 fL (83.0-100.0); Mean Platelet Volume 10.4 fL (9.4-12.4); Platelet Count 156 K/mcL (140-400); Red Blood Count 2.91 M/mcL (4.19-5.50); Red Cell Distribution Width 17.2 % (11.5-14.5); White Blood Count 9.6 K/mcL (4.3-11.1)
[2021-02-26 03:57] LABS: BUN/Creatinine Ratio 16 (6-26); Blood Urea Nitrogen 15 mg/dL (8-23); Calcium 8.3 mg/dL (8.6-10.3); Carbon Dioxide 38 mEq/L (23-29); Chloride 100 mEq/L (98-107); Glucose 111 mg/dL (70-105); Osmolality,Calculated 294 (280-300); Potassium 3.8 mEq/L (3.5-5.1); Sodium 141 mEq/L (136-145); eGFR For African Americans > 60 (> 60); eGFR For Non-African Americans > 60 (> 60)
[2021-02-26] MEDS: Pantoprazole 40 MG VIAL IVP SCH ×2 (05:11→17:41)
[2021-02-26] MEDS: Budesonide/Formoterol 160/4.5 1 PUFF INH IH SCH (07:25)
[2021-02-26] MEDS: Metoprolol XL (24 HR) Succ 25 MG TAB.ER.24H PO SCH (09:01)
[2021-02-26] MEDS: amLODIPine 5 MG TABLET PO SCH (09:01)
[2021-02-26 10:15] VITALS: BP 138/76
== END 2021-02-26 18:59 | disposition home health service (06) | DRG 871 ==
LOC: CDU → SUATTDRO 09:37 → CDU 18:52 → SUATTDRO 02-18 14:51 → 3ANU 02-19 16:32 → 2NNU 02-20 01:37 → 3ANU 02-24 19:56
PROVIDERS: ADMIT Family Medicine; ATTEND Internal Medicine